=== PATIENT | female | born 1965 | race Caucasian/White ===

== ENCOUNTER 2019-01-12 07:06 | Inpatient (IN) ==
[2019-01-12] MEDS ORDERED: NS 1,000 ML ONE ×2 (07:28→10:12)
[2019-01-12] MEDS ORDERED: NS 1,000 ML IV ONE ×3 (07:30→08:09)
--- NOTE | 2019-01-12 07:41 | PROVIDER DOCUMENTATION ---
[id number] Abuse/Overdose - General Chief Complaint: Shortness of Breath Stated Complaint: CONFUSED Time Seen by Provider: 01/12/19 07:35 Source: patient Allergies/Adverse Reactions: Allergies Allergy/AdvReac Type Severity Reaction Status Date / Time No Known Allergies Allergy Verified 04/08/17 12:32 Home Medications: Home Medication List Medication Instructions Recorded Confirmed Last Taken Type Cholecalciferol (Vitamin D3) 50,000 units PO ORDERED 04/08/17 01/12/19 01/11/19 History [D3-50] Folic Acid 1 mg PO DAILY 04/08/17 01/12/19 01/11/19 History Polyethylene Glycol 3350 [Miralax] 17 gm PO DAILY 04/08/17 01/12/19 01/11/19 History Atenolol 50 mg PO BID 01/13/19 01/13/19 01/11/19 History Doxepin HCl 50 mg PO DAILY 01/13/19 01/13/19 01/11/19 History Ergocalciferol (Vitamin D2) 50,000 units PO DIRECTED 01/13/19 01/13/19 Unknown History [Vitamin D] Folic Acid 1 mg PO DAILY 01/13/19 01/13/19 Unknown History Furosemide 20 mg PO DAILY 01/13/19 01/13/19 Unknown History Furosemide 20 mg PO DAILY 01/13/19 01/13/19 01/11/19 History Potassium Chloride [Klor-Con 10] 10 meq PO DAILY 01/13/19 01/13/19 01/09/19 History Quetiapine Fumarate 50 mg PO QHS 01/13/19 01/13/19 01/09/19 History Tramadol HCl 50 mg PO Q4HR PRN 01/13/19 01/13/19 01/11/19 History - History of Present Illness-Drug/Alcohol Nature of Presenting Problem: 3 days not eating and vomiting alcohol abuse smoker psychiatric illness asymmetric face says has had a stroke This episode of drinking or use began:: 3 days ago Severity: reports: severe Situational problems related to:: reports: N/A Associated Symptoms: reports: dizziness, fatigue, loss of appetite, nausea, vomi ting, weakness Any injuries associated with this episode of intoxication?: No Similar Symptoms Previously?: No Recently seen or treated by another doctor?: No Review of Systems - Adult - REVIEW OF SYSTEMS - ADULT Constitutional: denies: chills, fever Eyes: reports: no symptoms reported Ears, Nose, Mouth & Throat: reports: no symptoms reported Cardiovascular: denies: chest pain, palpitations Respiratory: reports: no symptoms reported Gastrointestinal: reports: diarrhea, nausea, vomiting Genitourinary: reports: no symptoms reported Musculoskeletal: reports: muscle weakness Integumentary: reports: no symptoms reported Neurological: reports: no symptoms reported Psychiatric: reports: anti-depressant use, alcohol/drug dependence, depression, emotional problems Endocrine: reports: no symptoms reported Hematologic/Lymphatic: reports: no symptoms reported Allergic/Immunologic: reports: no symptoms reported All Other Systems: Reviewed and Negative Past History - Adult - PAST MEDICAL HISTORY-ADULT Review of Records: reports: Old Records Reviewed, Nursing Assessment Review, Medications Reviewed, Social history reviewed & non-contributory. Major Childhood Illnesses: reports: denies history Cardiovascular: reports: HTN Respiratory: reports: denies history Gastrointestinal: reports: liver disease Obstetrical/Gynecological: reports: denies history Genitourinary: reports: denies history Musculoskeletal: reports: denies history Neurological: reports: CVA Endocrine/Immune: reports: denies history Other Conditions: reports: denies history - PRIOR SURGERIES/PROCEDURES Surgical/Procedure History: reports: BTL, orthopedic (extremity) (L knee) - IMMUNIZATION STATUS Childhood Immunizations: See Nurse Assessment Flu Vaccine: See Nurse Assessment - FAMILY HISTORY Family History: reviewed, not pertinent - SOCIAL HISTORY Substance Use: alcohol Living Situation: alone Physical Exam-General - PHYSICAL EXAM-ADULT Initial Vital Signs Reviewed: Yes - CONSTITUTIONAL General Appearance: moderate distress - EYES Eyes: PERRL/EOMI. negative: scleral icterus - HEAD, EARS, NOSE, MOUTH & THROAT HENMT: normocephalic/atraumatic - NECK Neck: supple - RESPIRATORY Respiratory: lungs clear - CARDIOVASCULAR Cardiovascular: regular rate, rhythm - GASTROINTESTINAL (ABDOMEN) Abdominal Exam: normal bowel sounds, non tender - LYMPHATIC Lymphatic: no adenopathy - MUSCULOSKELETAL Back Exam: normal inspection, no CVA tenderness, no vertebral tenderness Extremity: normal range of motion Peripheral Pulses: radial (R): 1+, radial (L): 1+ - SKIN Integumentary: normal color, normal turgor - NEUROLOGIC Neurologic: grossly normal - PSYCHIATRIC Psych/Mental Status: depressed affect Progress - PLAN OF CARE/RESULTS Progress/Plan/Lab Results: Orders Category Date Time Status Admit [facility] Routine AdmDCTranf 01/12/19 10:11 Active Activity - Strict Bedrest ORDERED Care 01/12/19 10:11 Active Apply Mechanical Device [QM] Q12-HR ASSESS Care 01/12/19 10:11 Active Cardiac Monitoring DIRECTED Care 01/12/19 07:17 Completed Elevate Head of Bed DIRECTED Care 01/12/19 10:11 Active Encourage Fluids DIRECTED Care 01/12/19 10:11 Active Morejon Cath Insertion ORDERED Care 01/12/19 08:09 Completed IV Insertion ORDERED Care 01/12/19 07:17 Completed IV Insertion ORDERED Care 01/12/19 08:09 Completed Intake and Output-Strict ORDERED Care 01/12/19 08:09 Completed Intake and Output-Strict Q 8-HR ASSESS Care 01/12/19 10:11 Active Notify MD of + Sepsis Screen NOW Care 01/12/19 07:17 Completed Notify Physician As Ordered Care 01/12/19 07:17 Completed Nursing- Assist w/ IS as order ORDERED Care 01/12/19 10:11 Active Repeat Vital Signs .Oxygen Saturation Care 01/12/19 08:09 Completed Repeat Vital Signs .Respiratory Rate Care 01/12/19 08:09 Completed Repeat Vital Signs .Temp Care 01/12/19 08:09 Completed Turn, Cough and Deep Breathe Q2HR Care 01/12/19 10:11 Active Update & Confirm Home Medicati ROUTINE Care 01/12/19 10:11 Completed Vital Signs Order Q 4-HR ASSESS Care 01/12/19 10:11 Completed Z-Document. for Tele Applied ORDERED Care 01/12/19 10:11 Completed Heart Healthy Diet Diet 01/12/19 10:11 Completed CHEST-1 VIEW [RAD] Stat Exams 01/12/19 07:17 Completed ABG [RESP] Routine Lab 01/12/19 08:25 Completed AMMONIA [CHEM] Stat Lab 01/12/19 07:30 Completed BASIC METABOLIC PANEL [CHEM] Routine Lab 01/13/19 07:21 Completed BLOOD CULTURE [BLDCUL] Stat Lab 01/12/19 07:37 Completed CBC WITH DIFF [HEME] Routine Lab 01/13/19 07:21 Completed CBC WITH DIFF [HEME] Stat Lab 01/12/19 07:30 Completed CK PROFILE [SP CHEM] Stat Lab 01/12/19 07:30 Completed COMPREHENSIVE METABOLIC PANEL [CHEM] Stat Lab 01/12/19 07:30 Completed LACTATE, PLASMA [CHEM] Lab 01/12/19 11:57 Completed LACTATE, PLASMA [CHEM] Q3H Lab 01/12/19 07:30 Completed MAGNESIUM [CHEM] Stat Lab 01/12/19 07:30 Completed PROTIME WITH INR [COAG] Stat Lab 01/12/19 07:30 Completed PTT [COAG] Stat Lab 01/12/19 07:30 Completed TROPONIN T Stat Lab 01/12/19 07:[address] W/POSS RFLX CULT [URINALYSIS] Stat Lab 01/12/19 10:18 Completed 0.9% Sodium Chloride Inj [Ns] 1,000 ml Med 01/12/19 07:28 Discontinued .ROUTE As directed 0.9% Sodium Chloride Inj [Ns] 1,000 ml Med 01/12/19 10:11 Discontinued IV 75 mls/hr 0.9% Sodium Chloride Inj [Ns] 1,000 ml Med 01/12/19 07:41 Discontinued IV 999 mls/hr 0.9% Sodium Chloride Inj [Ns] 1,000 ml Med 01/12/19 08:09 Discontinued IV As Directed mls/hr 0.9% Sodium Chloride Inj [Ns] 1,000 ml Med 01/12/19 07:30 Discontinued IV Wide Open mls/hr Acetaminophen [Tylenol] Med 01/12/19 10:11 Discontinued 650 mg PO Q4H PRN PRN Albuterol 2.5MG/Ipratrop 0.5MG [Duoneb (A & A)] Med 01/12/19 11:30 Discontinued 3 ml INH RTQ4H Dextrose 5%-0.45% NaCl Inj [D5 /2 Ns] 250 ml Med 01/12/19 08:15 Discontinued Norepinephrine [Levophed] 8 mg IV As Directed mls/hr Pharmacy Order [Vancomycin IV Per Pharmacy] Med 01/12/19 10:11 Discontinued 1 each MISC DIRECTED Piperacillin/Tazobactam [Zosyn] 3.375 gm Med 01/12/19 08:13 Discontinued 0.9% Sodium Chloride Inj [Ns] 50 ml IV NOW Piperacillin/Tazobactam [Zosyn] 3.375 gm Med 01/12/19 10:11 Discontinued 0.9% Sodium Chloride Inj [Ns] 50 ml IV Q6H Aerosol Treatments Routine Oth 01/12/19 10:11 Completed Aerosol Treatments Stat Ot 01/12/19 10:11 Completed Incentive Spirometer Routine Ot 01/12/19 10:11 Completed Oxygen Device Stat Ot 01/12/19 07:17 Completed Telemetry [OM.EQ] Routine Ot 01/12/19 10:11 Active Transfer/Admit Order [TRANSFER] Routine Transfer 01/12/19 08:41 Completed Result Diagrams: 01/19/19 05:10 01/19/19 05:10 - EKG 1 Time of EKG reading by physician:: 07:23 EKG Read and Signed by:: Josh Silva EKG Interpretation (*Must complete 3 of following elements*): Abnormal Rate: 105 Rhythm: sinus tachycardia [place]: right Comments: ST & T wave abnormality, consider anterior ischemia Departure - Departure Date of Disposition Decision: 01/12/19 Time of Disposition Decision: 19:10 DIAGNOSIS: Gastroenteritis, Polydrug abuse Disposition: ADMITTED INPATIENT 09 Certified Medical Emergency: Emergent Condition: Stable - Critical Care Note This patient required my direct & personal management of CC.: No Attestation - Physician/ BASHIR Attestation Patient care was provided by Advanced Practice Provider:: No The physician spent face to face time with patient:: Yes Advanced Practice Provider documentation review:: Supervising physician onsite and consulted in the evaluation and care of this patient. The physician did have a face to face encounter with the patient.
[2019-01-12 08:03] LABS: BASO# 0.01 X1000 (0.0-0.2); BASO% 0.2 % (0.0-0.8); EOS# 0.01 X1000 (0.0-0.7); EOS% 0.2 % (0.0-10.0); HEMATOCRIT 33.6 % (37.0-47.0); HEMOGLOBIN 11.5 g/dL (12.0-16.0); IMM GRAN# 0.05 X1000 (0.0-0.04); IMM GRAN% 1.2 % (0.0-0.5); LYMPH# 0.59 X1000 (1.2-3.4); MCH 36.3 PG (27-31); MCHC 34.2 g/dL (33-37); MONO# 0.45 X1000 (0.11-0.59); MONO% 10.7 % (1.7-9.3); MPV 12.8 FL (7.4-10.4); NEUT% 73.7 % (42.2-75.2); PLT 88 X1000 (130-400); RBC 3.17 XMIL (4.2-5.4); RDW 14.9 % (11.5-14.5); WBC 4.21 X1000 (4.8-10.8)
[2019-01-12 08:04] LABS: INR 1.31; PROTIME 16.9 Seconds (11.0-16.0)
[2019-01-12 08:05] LABS: PTT 38.6 Seconds (22.3-41.8)
[2019-01-12] MEDS ORDERED: ZOSYN 3.375 GM in NS 50 ML IV ONE (08:13)
[2019-01-12] MEDS ORDERED: LEVOPHED 8 MG in D5 1/2 NS 250 ML IV SCH ×2 (08:15→16:00)
--- NOTE | 2019-01-12 08:20 | Diag Imaging Result Doc PS360 ---
EXAM: CHEST-1 VIEW HISTORY: sob TECHNIQUE: Portable chest single view COMPARISON: 05/14/2017 FINDINGS: The lungs are well expanded. The heart is not enlarged. The vessels are not distended. There is increased density in the right lower lobe. No effusion identified. There are several old right rib fractures. IMPRESSION: Right lower lobe pneumonia. Electronically signed by aGbino Adams 01/12/2019 8:18 AM
[2019-01-12 08:37] LABS: BE -5.5 mmoll (-3.0-3.0); BLOOD TYPE ARTERIAL; HCO3-(ACT) 20.5 mmoll (20.0-26.0); O2(CT) 13.4 mL/dL (15.0-23.0); PCO2(98.6) 38 mmHg (35-45); PO2(98.6) 66 mmHg (60-100); SAMPLE BLOOD; SAO2 93.6 % (95.0-100.0); THB 10.6 g/dL (11.5-17.4); pH(98.6) 7.33 (7.35-7.45)
[2019-01-12 08:43] LABS: ALLEN TEST YES; MODALITY CANNULA; O2HB 89.8 % (95.0-99.0)
[2019-01-12 08:54] LABS: ANISOCYTOSIS 1+; BANDS 1 % (0-1); LYMPHS 17 % (21-51); MONO 15 % (1-9); SEGS 67 % (42-75)
[2019-01-12 09:23] LABS: ALBUMIN 2.7 g/dL (3.5-5.0); TOTAL BILIRUBIN 1.6 mg/dL (0.20-1.00); TOTAL PROTEIN 6.3 g/dL (6.3-8.3)
[2019-01-12 09:25] LABS: CALCIUM 6.9 mg/dL (8.8-10.2)
[2019-01-12 09:42] LABS: CK INDEX 1.8 (0.0-2.5); CK-MB 5.35 ng/mL (0.0-5.0)
--- NOTE | 2019-01-12 09:56 | HISTORY AND PHYSICAL ---
PRIMARY CARE PHYSICIAN: Dr. Barajas CHIEF COMPLAINT: Shortness of breath, some increased confusion, decreased appetite and vomiting over the past 3 days that has progressively worsened. HISTORY OF PRESENTING ILLNESS: This is a 53-year-old female who presents to [facility] ER with complaints of shortness of breath, confusion, decreased appetite, and has not been eating for the last 3 days and vomited with generalized weakness. When she arrived to the emergency room, she had an O2 saturation on room air of 87%. Blood pressure was 88/57; about 15 minutes later, she was 70/41. She has been given a total of 3 L of normal saline. Blood pressure is still 80s over 50s, and so she is being started on a Levophed drip per protocol. Her white blood cell count was 4.21. Her plasma lactate was 7.6. Her chest x-ray showed a right lower lobe pneumonia, so she is being admitted to the intensive care unit for further evaluation and treatment. PAST MEDICAL HISTORY: Atrial fibrillation, hyperlipidemia, hypertension, and CVA. PAST SURGICAL HISTORY: Bilateral tubal ligation. FAMILY HISTORY: Noncontributory. SOCIAL HISTORY: She currently lives with family, is a 9-qguw-u-day smoker. She has had a history of ETOH abuse, but none currently, and denies any illicit drug use. ALLERGIES: She has no known drug allergies. HOME MEDICATIONS: A current list will need to be confirmed, updated, and then we will review to restart. I have placed an order for nursing to update and confirm home medications. LABORATORY DATA: Showed a white blood cell count of 4.21, hemoglobin 11.5, hematocrit 33.6, platelets 88,000. PT and INR of 16.9 and 1.31. An ABG showed a pH of 7.33, pCO2 of 38, PO2 of 66, bicarbonate 20.5, and this was on 4 L via nasal cannula. Her CMP is currently pending. Her troponin is less than 0.01. Ammonia is 37. Plasma lactate was 7.6. Chest x-ray showed a right lower lobe pneumonia. REVIEW OF SYSTEMS: She denied any fever, chills. She has had some blurred vision, dizziness, and denied any chest pain. She has had a nonproductive cough, shortness of breath that is worse with exertion. Denied any abdominal pain. She has had some nausea, vomiting. Denied any constipation, diarrhea, or burning or hurting with urination. PHYSICAL EXAMINATION: VITAL SIGNS: On arrival, she had a temperature of 98.3 degrees, pulse 112, respirations 24, blood pressure was 88/57. It did drop about 30 minutes later to 70/41. We have given 3 L of normal saline bolus, and it only came up to 80s over 50s, so she is being started on a Levophed drip per protocol. GENERAL: This is a 53-year-old female who is sitting up in the bed, alert and awake and answers questions appropriately. HEENT: Normocephalic, atraumatic. Normal ENT inspection. Oropharynx and nares are clear. Eyes: Pupils are equal, round, reactive to light and accommodation. Extraocular movements are intact. NECK: Normal inspection, normal range of motion. LUNGS: With rales, rhonchi and wheezing throughout posterior lung doss. Equal lung expansion and chest wall movement noted. HEART: With regular rate and rhythm. No murmurs, rubs, or gallops. ABDOMEN: Soft, nontender, nondistended. Bowel sounds are present x4 quadrants. EXTREMITIES: She has some weakness to her right upper arm residual from her CVA, but otherwise she has 5/5 strength to her left upper arm and bilateral lower extremities. NEUROLOGICAL: The cranial nerves 2 through 12 appear grossly intact except for her right upper arm weakness from her CVA. ASSESSMENT: 1. Septic shock. 2. Right lower lobe pneumonia. 3. Hypotension. 4. Acute respiratory failure. PLAN: She is being admitted to the Intensive Care Unit at [facility], placed on telemetry, O2 per protocol, incentive spirometry, Zosyn 3.375 grams IV every 6 hours, vancomycin per pharmacy protocol. She will be on Levophed per protocol, normal saline at 75 mL/hour for her maintenance fluids. We will do serial plasma lactate per the sepsis protocol. Blood cultures x2 are pending. Again, nursing will update and confirm home medications and then we will review and restart after they have been reconciled. Further orders after being seen by attending. Dictated by JEFFREY Dyer for Mandy Haddad MD cc: JEFFREY Dyer MD Dr. Lovelace
[2019-01-12] MEDS ORDERED: TYLENOL PO PRN ×2 (10:11→15:21)
[2019-01-12] MEDS ORDERED: ZOSYN 3.375 GM in NS 50 ML IV SCH ×2 (10:11→16:00)
[2019-01-12] MEDS ORDERED: NS 1,000 ML IV SCH (10:11)
[2019-01-12] MEDS ORDERED: VANCOMYCIN IV PER PHARMACY MISC SCH (10:11)
[2019-01-12] MEDS ORDERED: MAGNESIUM SULFATE 4 GM/S.W.I. 4 GM/100 ML IVPB IV ONE (10:23)
[2019-01-12] MEDS ORDERED: DUONEB (A & A) ONE (10:26)
[2019-01-12] MEDS ORDERED: ZYVOX 600 MG/D5W 600 MG/300 ML IVPB IV SCH ×2 (10:30→22:00)
--- NOTE | 2019-01-12 10:32 | EKG Report ---
Test Performed on : 01/12/2019 07:23:02 AM Test Reason : ER Blood Pressure : / mmHG Vent. Rate : 105 BPM Atrial Rate : 105 BPM P-R Int : 164 ms QRS Dur : 092 ms QT Int : 366 ms P-R-T Axes : 018 092 069 degrees QTc Int : 483 ms Sinus tachycardia. Rightward axis ST & T wave abnormality, consider anterior ischemia Abnormal ECG When compared with ECG of 12-JAN-2019 07:22, (Unconfirmed) Previous ECG has undetermined rhythm, needs review Unconfirmed Result
[2019-01-12 11:00] LABS: BILIRUBIN URINE 2+ (NEGATIVE); BLOOD URINE 1+ (NEGATIVE); KETONE URINE 1+(Small) mg/dL (NEGATIVE); LEUKOCYTES URINE 1+ (NEGATIVE); NITRITE URINE POSITIVE (NEGATIVE); PH URINE 6.5; SP GRAVITY URINE 1.025; UROBILINOGEN URINE 8 mg/dL
[2019-01-12 11:01] LABS: CLARITY VERY CLOUDY (CLEAR); COLOR AMBER
[2019-01-12 11:10] LABS: URINE BACTERIA 2+ /HFP; URINE EPITHELIAL CELLS <10 /HPF (<10); URINE RBC <10 /HPF (<10); URINE SOURCE CLEAN CATCH
[2019-01-12] MEDS ORDERED: DUONEB (A & A) INH SCH (11:30)
--- NOTE | 2019-01-12 11:47 | HISTORY AND PHYSICAL ---
ADDENDUM: This is a 53-year-old female who was seen by me [id number] while she was there at the emergency room in room 11. I fully agree with the assessment and plan of nurse practitioner Naye Bello. The patient has been in septic shock because of which she had to receive Levophed, and is being aggressively hydrated. She has acute kidney injury, possibly secondary to sepsis with BUN and creatinine of 79 and 8.0 respectively. Her magnesium levels are found to be extremely low at 1.0 and calcium levels are low at 6.9. She has bilateral rales. Chest x-ray is consistent with right lower lobe pneumonia. Furthermore, she has 10 to 20 WBCs per high-power field in her urine. The patient has been initiated on Zosyn and Zyvox intravenously. She will need care in an intensive care setting. Because of her renal shutdown, we are going to transfer her to [facility] intensive care unit. We are going to consult Dr. Dozier from Nephrology Service and Dr. Chairez from Infectious Disease Service. Further recommendations will be given as per hospital course. cc: Mandy Haddad MD
[2019-01-12] MEDS: DUONEB (A & A) INH SCH ×3 (15:51→22:50)
[2019-01-12 16:04] LABS: UR CREAT RANDOM 239.5 mg/dL (11-20)
--- NOTE | 2019-01-12 16:12 | Diag Imaging Result Doc PS360 ---
EXAM: US RENAL 2 (RETROPER) COMPLETE 01/12/2019 HISTORY: acute kidney failure TECHNIQUE: Renal ultrasound COMMENT: The kidneys are without evidence of hydronephrosis. The urinary bladder is not distended. The right kidney is 12.2 x 6 x 6 x 8 cm the left is 13.4 x 6.1 x 6.6 cm. There is no evidence of solid masses. Overall the appearance of both kidneys is similar to that on 01/26/2016. IMPRESSION: No evidence of obstructive uropathy. Electronically signed by Mele Dykes 01/12/2019 4:09 PM
--- NOTE | 2019-01-12 16:29 | INFECTIOUS DISEASE CONSULT REP ---
DATE: 01/12/2019 CONCLUSION: The patient appears to be septic due to pneumonia and possibly urinary tract infection as well. The patient has developed acute renal failure also. RECOMMENDATIONS: I have discontinued Zyvox and Zosyn. I am going to treat the patient with ceftaroline and Levaquin. DISCUSSION: The patient was wearing an oxygen mask and it was difficult for me to obtain a history from her. According to the data in the chart, the patient had shortness of breath, increased confusion, decreased appetite and vomiting over the past 3 days. Her studies thus far show a chest x-ray with a right lower lobe pneumonia, urinalysis with white cells and bacteria. Blood and urine cultures are pending. AST was 45. Bilirubin was 1.6. Creatinine was 8. GFR was 5. Blood gases had a pH of 7.33, a pO2 of 66, and a pCO2 of 38. The patient's CBC showed a white count of 4210, hemoglobin 11.5, and platelet count of 88,000. PAST MEDICAL HISTORY: Positive for atrial fibrillation, hyperlipidemia, hypertension, and stroke. PAST SURGICAL HISTORY: Positive for bilateral tubal ligation. FAMILY HISTORY: Said to be noncontributory. SOCIAL HISTORY: The patient lives with her family. She is a 1 pack-a-day smoker. She has a history of alcohol abuse but none currently. She does not have any history of illicit drug use. HOME MEDICATIONS: Include vitamin D3, folic acid and MiraLAX. PHYSICAL EXAMINATION: Vital Signs: Temperature is 97.2 degrees, pulse 88, respirations 19, blood pressure 92/80. Patient is 5 feet 7 inches tall, weighs 180 pounds. General: This is an ill- appearing middle-aged female. She is in no acute distress. Head/eyes/ears/nose/throat: She can hear my spoken words and see near objects. She does not have any white coating on her tongue. There is no drainage from the nose or ears. Neck: No meningismus. Lungs: Clear to auscultation. Cardiovascular: Heart rate is regular. Abdomen: Soft and nontender. Neurologic: The patient is awake. She can move her extremities. There is no tremor. Integument: No rash noted. Thank you for the consult. cc: Mayur Chairez MD
[2019-01-12] MEDS: LEVAQUIN 250 MG/D5W 250 MG/50 ML IVPB IV SCH (17:02)
[2019-01-12] MEDS: LEVOPHED 8 MG in D5 1/2 NS 250 ML IV SCH ×2 (17:02→22:08)
[2019-01-12] MEDS: NICODERM PATCH TD SCH (17:02)
--- NOTE | 2019-01-12 18:05 | Diag Imaging Result Doc PS360 ---
EXAM: US GB < RUQ (LIMITED) 01/12/2019 HISTORY: GB disease TECHNIQUE: Right upper quadrant ultrasound COMMENT: The liver is hyperechoic. The visualized portions of the aorta and inferior vena cava are within normal limits. The visualized portions of the pancreas are unremarkable. The gallbladder is clear and nontender. The right kidneys without evidence of hydronephrosis or mass. There is antegrade flow in the portal vein. There is no evidence of biliary dilatation the common bile duct measuring 5 mm. IMPRESSION: Hepatic steatosis. No evidence of acute disease. Electronically signed by Mele Dykes 01/12/2019 6:03 PM
[2019-01-12] MEDS: TEFLARO 400 MG in NS 250 ML IV SCH (18:15)
[2019-01-12 18:30] LABS: ALBUMIN 1.8 g/dL (3.5-5.0); CREATININE 6.1 mg/dL (0.5-0.9); PHOSPHORUS 3.8 mg/dL (2.7-4.5); POTASSIUM 4.1 mmol/L (3.5-5.1)
[2019-01-12] MEDS ORDERED: CALCIUM CHLORIDE SYRINGE IV ONE (18:47)
[2019-01-12] MEDS ORDERED: NS IV ONE (19:30)
[2019-01-12] MEDS ORDERED: CALCIUM CHLORIDE IV ONE (19:30)
[2019-01-12] MEDS: VITAMIN B-1 PO SCH (20:00)
[2019-01-12] MEDS: FOLIC ACID PO SCH (20:00)
[2019-01-12] MEDS: NS 1,000 ML IV SCH (21:08)
[2019-01-12] MEDS: ATIVAN IV PRN (23:00)
[2019-01-13] MEDS: DUONEB (A & A) INH SCH ×6 (02:50→23:13)
[2019-01-13] MEDS: LEVOPHED 8 MG in D5 1/2 NS 250 ML IV SCH ×2 (05:26→14:26)
[2019-01-13] MEDS: TEFLARO 400 MG in NS 250 ML IV SCH ×2 (05:26→18:09)
[2019-01-13 07:57] LABS: CALCIUM 7.8 mg/dL (8.8-10.2); CREATININE 5.1 mg/dL (0.5-0.9); POTASSIUM 4.1 mmol/L (3.5-5.1)
[2019-01-13 08:06] LABS: BASO# 0.01 X1000 (0.0-0.2); BASO% 0.1 % (0.0-0.8); EOS# 0.05 X1000 (0.0-0.7); EOS% 0.6 % (0.0-10.0); HEMATOCRIT 31.9 % (37.0-47.0); HEMOGLOBIN 10.7 g/dL (12.0-16.0); IMM GRAN# 0.13 X1000 (0.0-0.04); IMM GRAN% 1.7 % (0.0-0.5); LYMPH# 1.01 X1000 (1.2-3.4); LYMPH% 12.9 % (20.5-51.1); MCH 36.3 PG (27-31); MCHC 33.5 g/dL (33-37); MCV 108.1 FL (81-99); MONO% 6.4 % (1.7-9.3); NEUT# 6.14 X1000 (1.4-6.5); NEUT% 78.3 % (42.2-75.2); PLT 68 X1000 (130-400); RBC 2.95 XMIL (4.2-5.4); RDW 14.8 % (11.5-14.5); WBC 7.84 X1000 (4.8-10.8)
[2019-01-13] MEDS: VITAMIN B-1 PO SCH (08:08)
[2019-01-13] MEDS: LIBRIUM PO SCH ×3 (08:08→16:15)
[2019-01-13] MEDS: FOLIC ACID PO SCH (08:08)
[2019-01-13] MEDS: NICODERM PATCH TD SCH (08:09)
[2019-01-13 08:20] LABS: BANDS 10 % (0-1); EOS 1 % (1-10); LYMPHS 16 % (21-51); MONO 5 % (1-9); SEGS 68 % (42-75)
[2019-01-13] MEDS: NS 1,000 ML IV SCH (10:55)
--- NOTE | 2019-01-13 13:40 | NEPHROLOGY CONSULTATION ---
DATE: 01/13/2019 REASON FOR ADMISSION: Shortness of breath, confusion, decreased appetite, nausea, vomiting for over 3 days. REASON FOR CONSULTATION: Acute kidney injury, assist with management. CONSULTING PHYSICIAN: Dr. Tolbert. HISTORY OF PRESENT ILLNESS: This is a 53-year-old female who presented to [facility] ER with shortness of breath, confusion, no appetite for 3 days, nausea, and vomiting. In the emergency room she had an O2 saturation of 87. She was hypotensive with a blood pressure systolic 70s to 80s. She was resuscitated with 3 L of normal saline and started on pressor support. She had a lactate of 7.6. Chest x-ray indicated a right lower lobe pneumonia. Initially, she had a creatinine of 8. She was transferred over to the [facility] Intensive Care Unit for further evaluation and treatment. Overnight her creatinine has improved from 8 down to 5.1. Urine output has begun picking up in the last 12 hours. She has had 650 mL out since she arrived to [facility] last night. It was noted that she had a FENa of 0.4. When I see her this morning, she is able to eat. She is still confused but has not had any nausea or vomiting at this time. PAST MEDICAL HISTORY: Atrial fibrillation, hypertension, hyperlipidemia, history of cerebrovascular accident. SURGICAL HISTORY: Bilateral tubal ligation. ALLERGIES: No known drug allergies. HOME MEDICATIONS: Listed as vitamin D3, folic acid, doxepin, atenolol, ergocalciferol, furosemide, folic acid, tramadol, quetiapine, and potassium chloride. FAMILY HISTORY: Noncontributory. SOCIAL HISTORY: Lives at home with her family. Continues to smoke a pack a day. No ETOH or illicit drug use noted. REVIEW OF SYSTEMS: Confusion, nausea, vomiting, weakness, shortness of breath. Otherwise negative. PHYSICAL EXAMINATION: Vital Signs: Temperature 98 degrees, pulse 90, respiratory rate 16, blood pressure 117/78, intake 2.2 L. This was after she arrived at [facility] ICU. Output of 650 mL in same time frame. General: Middle-aged female sitting up in bed. She is awake and alert. She is a little bit confused but does slowly answer questions. HEENT: Normocephalic, atraumatic. Oral mucosa is moist. Neck: Supple. CRISSY. Conjunctivae are pale. Neck: No JVD. Cardiovascular: Regular rate and rhythm. Pulmonary: She has wheezes bilaterally with rhonchi and rales. She is on O2 supplementation via nasal cannula. She has decreased breath sounds to the posterior doss. Abdomen: Soft, with positive bowel sounds. : Morejon catheter. Extremities: Trace edema. Some decreased movement to the right upper extremity. Neurologic: Grossly nonfocal. LAB DATA: Sodium 140, potassium 4.1, CO2 24, BUN 89, creatinine 5.1 (8.0). She had a FENa of 0.4. Urine was cloudy with 3+ protein, 1+, ketones, 1+ blood, positive nitrates, and 1+ WBCs. Her WBC was 7.8, hemoglobin was 10.7 today. She had a ultrasound with kidneys unremarkable and no evidence of hydronephrosis or obstruction. Her chest x-ray yesterday with right lower lobe pneumonia. ASSESSMENT/PLAN: 1. Acute kidney injury secondary to decreased intravascular volume along with increased metabolic production secondary to pneumonia. She has had impressive improvement with renal function in the last 12 hours with IV fluid resuscitation. 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 We will continue her current treatment plan. She does not have any indications for intervention in the form of dialysis at this time. 2. Electrolytes, acid-base balance. These are acceptable. Her CO2 is up to 24 today. Calcium is still low but improving. She has labs ordered for in the morning. 3. Proteinuria and hematuria in the setting of urinary tract infection. She is on appropriately dosed antibiotics. I will recheck her urine. If she continues with a proteinuria, will need a protein work. Dictated by JEFFREY Baer for Mike Dozier MD cc: Mike Dozier MD [facility]
--- NOTE | 2019-01-13 15:08 | PROGRESS NOTE ---
DATE: 01/13/2019 SUBJECTIVE: The patient's notes she looks better today. Her color is better. She is breathing easier. Several days prior to coming in, she had increased confusion due to her decreased appetite up to 3 to 4 days prior to admission. She notes that she had stopped eating and drinking as well. OBJECTIVE: Vital Signs: On exam, temperature 98.4, pulse 90, respiratory rate 18, BP 111/77. General: Patient is awake. She is in no current respiratory distress. HEENT: Normocephalic. Neck: Supple. CV: Regular rate. Chest: Clear, but decreased breath sounds bilaterally. No crackles. Abdomen: Soft. Positive bowel sounds. Extremities: Moves all extremities, although generalized weakness. ASSESSMENT: 1. Chronic tobacco abuse. 2. Severe hyponatremia, improved. 3. Septic shock, improved. 4. Acute renal failure. Creatinine was 8.0 yesterday; currently is improved down to 5.1. 5. Hypocalcemia, improved. 6. Right lower lobe pneumonia. 7. Urinary tract infection. PLAN: We will continue patient on Levaquin at the floor until cultures return. We will continue IV fluids, continue her in the ICU for now. Further orders as needed. cc: Giovani Tolbert MD
[2019-01-13] MEDS: LEVAQUIN 250 MG/D5W 250 MG/50 ML IVPB IV SCH (15:26)
[2019-01-13] MEDS: ATIVAN IV PRN (22:35)
[2019-01-14] MEDS: LEVOPHED 8 MG in D5 1/2 NS 250 ML IV SCH (00:33)
[2019-01-14] MEDS: NS 1,000 ML IV SCH ×2 (00:34→13:58)
[2019-01-14] MEDS: DUONEB (A & A) INH SCH ×6 (02:58→23:14)
[2019-01-14] MEDS: TEFLARO 400 MG in NS 250 ML IV SCH ×3 (04:55→17:45)
[2019-01-14 06:32] LABS: HEMOGLOBIN 10.2 g/dL (12.0-16.0); MCH 36.8 PG (27-31); MCV 108.3 FL (81-99); MPV 12.4 FL (7.4-10.4); RBC 2.77 XMIL (4.2-5.4); RDW 15.2 % (11.5-14.5); WBC 4.98 X1000 (4.8-10.8)
[2019-01-14 07:54] LABS: ALBUMIN 1.7 g/dL (3.5-5.0); CALCIUM 7.8 mg/dL (8.8-10.2); CREATININE 3.5 mg/dL (0.5-0.9); PHOSPHORUS 3.2 mg/dL (2.7-4.5); POTASSIUM 3.1 mmol/L (3.5-5.1)
[2019-01-14] MEDS: NICODERM PATCH TD SCH (08:59)
[2019-01-14] MEDS: LIBRIUM PO SCH ×3 (09:00→16:56)
[2019-01-14] MEDS: VITAMIN B-1 PO SCH (09:00)
[2019-01-14] MEDS: FOLIC ACID PO SCH (09:00)
--- NOTE | 2019-01-14 09:49 | NEPHROLOGY PROGRESS NOTE ---
DATE: 01/14/2019 SUBJECTIVE: The patient is sitting up in bed. No acute distress. OBJECTIVE: Vital Signs: Temperature 98.4 degrees, pulse 86, respiratory rate 18, blood pressure 111/74. Intake 3.7 L. Output 1.9 L. General: This is a middle-aged female, sitting up in bed. Awake and alert. Mild confusion but is appropriate with answers. HEENT: Normocephalic and atraumatic. CRISSY. Neck: Supple without JVD. Respiratory: She has no wheeze or rales today. Remains on O2 supplementation via nasal cannula. Does have decreased breath sounds posterior. Abdomen: Soft with positive bowel sounds. : Continues with a Morejon catheter and yellow urine. She has greater than 300 mL out so far this morning. Her urine output has picked up nicely. Extremities: Trace edema. No clubbing or cyanosis. Integumentary: Skin is warm and dry. Lab Data: WBC of 4.9, hemoglobin 10.2. Sodium 145, potassium 3.1, CO2 21, creatinine 3.5, albumin 1.7. ASSESSMENT AND PLAN: 1. Acute kidney injury secondary to decreased intravascular volume in the setting of pneumonia. Continues with nice improvement in renal function. Her urine output has picked up tremendously over the last 24 hours. No indications for intervention other than her current treatment plan. Continue to monitor. 2. Electrolytes, acid-base balance, anemia. These are all stable. CO2 remains stable at 21. Continue to monitor. 3. Proteinuria. I have a urinalysis and a urine creatinine-protein ratio ordered. I do not have those results yet. If that is significant, we will need to follow up. 4. Hypoalbuminemia. Encourage nutrition. I am waiting on results from her urine studies before I determine if she needs to actually have intravenous albumin. Dictated by JEFFREY Baer for Mike Dozier MD cc: Mike Dozier MD
[2019-01-14 10:25] LABS: URINE SOURCE CATH
[2019-01-14 10:29] LABS: BILIRUBIN URINE NEGATIVE (NEGATIVE); BLOOD URINE SMALL (NEGATIVE); COLOR YELLOW; GLUCOSE URINE NEGATIVE (NEGATIVE); KETONE URINE NEGATIVE (NEGATIVE); LEUKOCYTES URINE TRACE (NEGATIVE); NITRITE URINE NEGATIVE (NEGATIVE); PROTEIN URINE TRACE mg/dL (NEGATIVE); SP GRAVITY URINE 1.005; TURBIDITY URINE HAZY (CLEAR); UROBILINOGEN URINE 2 mg/dL (NORMAL)
[2019-01-14 10:51] LABS: PROTEIN CREAT RATIO 0.3; UR CREAT RANDOM 53.2 mg/dL (11-20); UR PROT RANDOM 17.9 mg/dL
[2019-01-14 11:07] LABS: UR EPITHELIAL CELLS <10 /HPF (<10); URINE BACTERIA NEGATIVE /HPF; URINE CASTS GRANULAR PRESENT; URINE RBC 20-40 /HPF (<10); URINE YEAST NONE SEEN
--- NOTE | 2019-01-14 14:00 | INFECTIOUS DISEASE PROGRESS NO ---
DATE: 01/14/2019 PRESENT ILLNESS: The patient has right lower lobe pneumonia and a urinary tract infection. MEDICATIONS: The patient is on a combination of ceftaroline and Levaquin, the doses of which have been modified because of the patient's renal failure. PHYSICAL EXAMINATION: Vital Signs: Temperature is 97.8 degrees, pulse 93, respirations 16, blood pressure 116/73. General: This is an obese, middle-aged female who is lethargic. She is in no acute distress. Head/eyes/ears/nose/throat: She is able to hear my spoken words. She can see near objects. There is no drainage from the nose or ears. Her tongue does not have any white patches on it. Neck: No stiffness. Lungs: Clear to auscultation. Cardiovascular: Heart rate is regular. Abdomen: Soft and nontender. Neurologic: As mentioned above, patient is lethargic. She did follow request to move her extremities. There was no tremor. Integument: No rash. LAB AND RADIOLOGY: The patient's CBC shows a white count of 4980, hemoglobin 10.2, and platelet count 52,000. Urine culture is growing Klebsiella. Ultrasound of the abdomen showed hepatic steatosis. Creatinine is 3.5. GFR is 14. Blood cultures are sterile. Urine culture grew Klebsiella. ASSESSMENT AND PLAN: The patient has pneumonia and urinary tract infection. My plan is to continue the current antibiotics, namely ceftaroline and Levaquin. COMORBIDITIES: Her main comorbidity is that she is a cigarette smoker and has a history of alcohol abuse. cc: Mayur Chairez MD
--- NOTE | 2019-01-14 14:03 | Diag Imaging Result Doc PS360 ---
CHEST-1 VIEW - 01/14/2019 INDICATION: pneumonia COMPARISON: 01/12/2019 FINDINGS: There is slight improvement in the right basilar infiltrate. Heart size remains somewhat enlarged. No pneumothorax or large pleural effusion. Lung volumes are lower. IMPRESSION: Slight improvement in the right basilar infiltrate. Electronically signed by Art Rosario 01/14/2019 2:01 PM
--- NOTE | 2019-01-14 15:35 | PROGRESS NOTE ---
DATE: 01/14/2019 SUBJECTIVE: Patient resting in bed. Not in any obvious distress. OBJECTIVE: Vital Signs: Temperature 97.4, pulse 94, respirations 18, blood pressure 120/64, oxygen saturation 97%. HEENT: Atraumatic, normocephalic. Cardiovascular: S1, S2. Respiratory: Has evidence of good air entry bilaterally. Abdomen: Soft, nontender. No masses felt. Extremities: No evidence of significant edema in the lower extremities. Central Nervous System: No obvious focal deficit noted. LABORATORY DATA: As follows: WBC is 4.98, hematocrit 30.0, with a platelet count of 52,000. Sodium is 145, potassium 3.1, chloride is 107, bicarb is 21, BUN is 18, creatinine 3.5 . Urine culture positive for Klebsiella pneumonia. Blood cultures no growth after 48 hours. X-ray chest shows slight improvement in right basilar infiltrate. ASSESSMENT AND PLAN: 1. Septic shock. Maintain patient on intravenous fluids as well as pressors. Continue antibiotics. Follow up on culture report. 2. Pneumonia/urinary tract infection. Antibiotic management per Infectious Disease team. 3. Acute kidney injury. Nephrology is following. 4. Thrombocytopenia, most likely due to medication effect. Discontinue all offending drugs and follow up on platelet count. 5. Hypokalemia. Replace potassium level. Check magnesium level. Replacement will be cautious in light of renal impairment. 6. Alcoholism. Maintain patient on delirium tremens prophylaxis as well as thiamine, folic acid, as well as multivitamin. Check magnesium and phosphorus level. 7. Tobacco use history. Recommend nicotine patch. 8. DVT prophylaxis. SCDs. 9. GI prophylaxis. PPI. cc: Aram Cantor MD [facility]
[2019-01-14] MEDS: LEVAQUIN 250 MG/D5W 250 MG/50 ML IVPB IV SCH (15:36)
[2019-01-14] MEDS: SODIUM CHLORIDE 0.9% INJ SCH (15:36)
[2019-01-14] MEDS: PROTONIX IV SCH (15:36)
[2019-01-14] MEDS: ATIVAN IV PRN (23:30)
[2019-01-15] MEDS: DUONEB (A & A) INH SCH ×6 (03:16→23:18)
[2019-01-15] MEDS: TEFLARO 400 MG in NS 250 ML IV SCH ×2 (05:05→17:27)
[2019-01-15] MEDS: NS 1,000 ML IV SCH ×2 (05:05→15:51)
[2019-01-15 06:39] LABS: HEMATOCRIT 24.3 % (37.0-47.0); HEMOGLOBIN 8.2 g/dL (12.0-16.0); MCH 29.7 PG (27-31); MCHC 33.7 g/dL (33-37); MPV 10.1 FL (7.4-10.4); RBC 2.76 XMIL (4.2-5.4); RDW 17.1 % (11.5-14.5); WBC 13.47 X1000 (4.8-10.8)
[2019-01-15 07:16] LABS: ALBUMIN 3.1 g/dL (3.5-5.0); CALCIUM 10.1 mg/dL (8.8-10.2); CREATININE 6.9 mg/dL (0.5-0.9); MAGNESIUM 2.5 mg/dL (1.5-2.7); PHOSPHORUS 6.3 mg/dL (2.7-4.5)
[2019-01-15] MEDS: VITAMIN B-1 PO SCH (07:59)
[2019-01-15] MEDS: NICODERM PATCH TD SCH (07:59)
[2019-01-15] MEDS: FOLIC ACID PO SCH (07:59)
[2019-01-15] MEDS: KLOR-CON PO SCH (07:59)
[2019-01-15] MEDS: LIBRIUM PO SCH ×2 (07:59→12:45)
[2019-01-15] MEDS: ATIVAN IV PRN (08:43)
--- NOTE | 2019-01-15 09:12 | INFECTIOUS DISEASE PROGRESS NO ---
DATE: 01/15/2019 PRESENT ILLNESS: The patient has a right lower lobe pneumonia and a urinary tract infection. MEDICATIONS: The patient has been receiving, for the past 3 days, ceftaroline and Levaquin, the doses of which are modified because of the patient's renal failure. PHYSICAL EXAMINATION: Vital Signs: Temperature is 98.1 degrees, pulse 95, respirations 18, blood pressure 123/83. General: This is an obese, lethargic, middle-aged female. She is in no acute distress. Head, Eyes, Ears, Nose, and Throat: She can hear my spoken words. She can see near objects. She does not have any drainage from her nose or ears. She does not have any white coating of her tongue. Lungs: Clear to auscultation. Cardiovascular: Heart rate is regular. Abdomen: Soft and nontender. Neurologic: The patient is lethargic. She did follow requests to move her extremities. She does not have a tremor. Integument: No rash. LAB AND RADIOLOGY: There is no new radiology. CBC today showed an increase in the white blood cell count to 13,490, hemoglobin 8.2, and platelet count 391,000. Creatinine is 6.9. GFR is 6. ASSESSMENT AND PLAN: The patient has pneumonia and a urinary tract infection. Today, her white blood cell count increased. My plan is to continue ceftaroline and Levaquin, and I will repeat her CBC tomorrow morning. COMORBIDITIES: Cigarette smoking and a history of alcohol abuse. cc: Mayur Chairez MD
[2019-01-15] MEDS: SODIUM BICARBONATE PO SCH ×2 (11:22→21:31)
[2019-01-15 11:45] LABS: UR CREAT RANDOM 63.3 mg/dL (11-20); UR PROT RANDOM 19.7 mg/dL
--- NOTE | 2019-01-15 11:54 | NEPHROLOGY PROGRESS NOTE ---
DATE: 01/15/2019 TIME SEEN: 0620. SUBJECTIVE: Ms. Hussein is resting quietly in bed. She is awake. She states that she is just uncomfortable all over. OBJECTIVE: Vital Signs: Temperature 98.8 degrees, blood pressure 125/80, heart rate 95, respirations 14, she is on 5 L nasal cannula. Last recorded saturation 100%. General: This is a 53-year-old white female. She is resting quietly in bed. States that she is hurting all over. She is in no acute distress. Skin: Warm and dry. HEENT: Normocephalic, atraumatic. Conjunctiva is pale. Mucous membranes are dry. Neck: Supple. Trachea midline. She does have some hepatojugular reflux. Negative JVD. Cardiovascular: She is regular rate and rhythm on the monitor. She has no appreciable murmur or gallop. Lungs: Diminished breath sounds bilaterally. Equal excursion on O2. Abdomen: Soft, positive bowel sounds. Genitourinary: Morejon catheter is in place. Dark yellow urine out. Extremities: Trace edema. Some upper hand swelling. No lower extremity edema. Integumentary: Skin is warm and dry. Some redness noted to her bilateral hands. Neurological: She is alert to person and to place. INPUT AND OUTPUT: She has had 2856 in, 1675 out to Morejon catheter. LABORATORIES: Sodium 131, potassium 4, chloride 86, CO2 19, BUN 95, creatinine 6.9, glucose 145. Her anion gap is 26, calcium 10.1, phosphorus 6.3, albumin 3.1, magnesium 2.5. White count 13.47, hemoglobin 8.2, hematocrit 24.3. ASSESSMENT AND PLAN: 1. Acute kidney injury. Likely secondary to intravascular volume depletion in the setting of pneumonia. Her BUN and creatinine have slightly elevated in the last 24 hours. Her urine output appears stable. She remains on normal saline at 75 mL an hour. Her antibiotics are renally dosed. Due to these elevations in her BUN and creatinine, we will recheck her urine electrolytes. 2. Electrolytes and acid-base balance and anemia. The patient has mild anion gap acidosis with metabolic acidosis. We will check a plasma lactate and check for stools to see if patient is bleeding again. 3. Anemia. This patient's hemoglobin has dropped by 2 points. We will defer to the primary care team for possible intervention. 4. Right lower lobe pneumonia with urinary tract infection. This is followed by Dr. Mayur Chairez. The patient's antibiotics are renally dosed with Teflaro and Levaquin. I would like to thank you for allowing us to follow with this patient. Dictated by JEFFREY Kline for Mike Dozier MD Face to face encounter, data reviewed, discussed with Agustina Thomas on 01/15/19. I agree with the above assessment and plan of care. cc: JEFFREY Kline MD [facility]
--- NOTE | 2019-01-15 14:04 | PROGRESS NOTE ---
DATE: 01/15/2019 SUBJECTIVE: The patient is resting in bed. She is confused this morning. I was unable to establish effective communication with her this morning. She does mumble some words which are not understandable. OBJECTIVE: Vital Signs: Temperature 97.9 degrees, pulse 93, respiratory rate 20, blood pressure is 134/79, oxygen saturation is 95%. HEENT: Atraumatic, normocephalic. Cardiovascular system: S1, S2. Respiratory system: Has evidence of good air entry bilaterally. Abdomen: Soft, nontender. No masses felt. Extremities: No evidence of significant edema in the lower extremities. Central nervous system: The patient is awake, but disoriented. DIAGNOSTIC STUDIES: WBCs 13.47, hematocrit is 24.3 with a platelet count of 391,000. Sodium is 131, potassium is 4.0, chloride is 86, BUN is 95, creatinine is 6.9. Urine culture positive for Klebsiella pneumoniae. X-ray chest done yesterday shows a slight improvement in right basilar infiltrate. ASSESSMENT AND PLAN: 1. Septic shock. The patient will need to be on intravenous fluids as well as pressors if needed and continue antibiotics. Follow up on cultures. 2. Pneumonia/urinary tract infection. Continue antibiotics as recommended by the Infectious Disease team. 3. Acute kidney injury. Patient's renal function seems to be worsening. Nephrology is following. 4. Thrombocytopenia. May be related to the effect of alcohol on bone marrow, as patient is an alcoholic. Continue to follow up on platelet count. 5. Anemia. We will check iron studies, B12 and folate levels, and also stool for occult blood. 6. Alcoholism. Maintain patient on delirium tremens prophylaxis, as well as thiamine folic acid, multivitamin. Check magnesium and phosphorus levels and replace if needed. 7. Tobacco use history. Nicotine patch recommended. 8. Deep vein thrombosis (DVT) prophylaxis. SCD. 9. Gastrointestinal (GI) prophylaxis. PPI. cc: Aram Cantor MD [facility]
--- NOTE | 2019-01-15 14:30 | Diag Imaging Result Doc PS360 ---
EXAM: CT HEAD W/O CONTRAST HISTORY: encephalopathy TECHNIQUE: CT head without contrast COMPARISON: 12/09/2016 FINDINGS: No parenchymal hemorrhage. No epidural or subdural hematoma. No subarachnoid hemorrhage. There is mild atrophy with mild chronic microvascular ischemic changes. No mass identified on this noncontrasted exam. No hydrocephalus. Prominent mucosal thickening in the right sphenoid sinus with moderate mucosal thickening in the right frontal and ethmoid sinuses IMPRESSION: 1.No hemorrhage 2.Mild atrophy with mild chronic microvascular ischemic changes 3.Sinusitis This exam was performed using automated exposure control, adjustment of mA or kV according to patient size, and/or use of iterative reconstruction technique. Electronically signed by Gabino Adams 01/15/2019 2:28 PM
[2019-01-15] MEDS: SODIUM CHLORIDE 0.9% INJ SCH (14:33)
[2019-01-15] MEDS: PROTONIX IV SCH (14:34)
[2019-01-15 15:08] LABS: IRON SATURATION 75 %; TIBC 107 ug/dL; TOTAL IRON 80 ug/dL (49-151); UNBOUND IRON 27 ug/dL (112-346)
[2019-01-15 15:35] LABS: FERRITIN 1256 ng/mL (13-150)
[2019-01-15] MEDS: LEVAQUIN 250 MG/D5W 250 MG/50 ML IVPB IV SCH (15:51)
[2019-01-16] MEDS: ATIVAN IV PRN ×3 (02:16→22:29)
[2019-01-16] MEDS: DUONEB (A & A) INH SCH ×6 (03:14→22:49)
[2019-01-16] MEDS: TEFLARO 400 MG in NS 250 ML IV SCH ×2 (05:43→17:41)
[2019-01-16] MEDS: NS 1,000 ML IV SCH (05:46)
[2019-01-16 05:52] LABS: BASO# 0.01 X1000 (0.0-0.2); BASO% 0.3 % (0.0-0.8); EOS# 0.03 X1000 (0.0-0.7); EOS% 0.8 % (0.0-10.0); HEMATOCRIT 26.2 % (37.0-47.0); HEMOGLOBIN 8.7 g/dL (12.0-16.0); IMM GRAN# 0.17 X1000 (0.0-0.04); IMM GRAN% 4.6 % (0.0-0.5); LYMPH# 0.77 X1000 (1.2-3.4); LYMPH% 20.9 % (20.5-51.1); MCH 36.4 PG (27-31); MCHC 33.2 g/dL (33-37); MCV 109.6 FL (81-99); MONO% 10.8 % (1.7-9.3); MPV 11.3 FL (7.4-10.4); NEUT# 2.31 X1000 (1.4-6.5); NEUT% 62.6 % (42.2-75.2); PLT 102 X1000 (130-400); RBC 2.39 XMIL (4.2-5.4); RDW 16.2 % (11.5-14.5); WBC 3.69 X1000 (4.8-10.8)
[2019-01-16 06:43] LABS: ALBUMIN 1.7 g/dL (3.5-5.0); CALCIUM 8.1 mg/dL (8.8-10.2); CREATININE 1.6 mg/dL (0.5-0.9); PHOSPHORUS 3.1 mg/dL (2.7-4.5); POTASSIUM 3.1 mmol/L (3.5-5.1)
[2019-01-16 06:44] LABS: ALLEN TEST YES; BE -2.3 mmoll (-3.0-3.0); BLOOD TYPE ARTERIAL; METHB 0.7 % (0.0-1.5); O2(CT) 20.4 mL/dL (15.0-23.0); O2HB 94.8 % (95.0-99.0); PCO2(98.6) 38 mmHg (35-45); PO2(98.6) 84 mmHg (60-100); SAMPLE BLOOD; SAO2 97.3 % (95.0-100.0); THB 15.3 g/dL (11.5-17.4); pH(98.6) 7.38 (7.35-7.45)
[2019-01-16 06:45] LABS: MODALITY CANNULA
[2019-01-16] MEDS: NICODERM PATCH TD SCH (09:08)
[2019-01-16] MEDS: SODIUM BICARBONATE PO SCH ×2 (09:10→20:28)
[2019-01-16] MEDS: FOLIC ACID PO SCH (09:10)
[2019-01-16] MEDS: KLOR-CON PO SCH (09:10)
[2019-01-16] MEDS: VITAMIN B-1 PO SCH (09:10)
[2019-01-16] MEDS: D5 1/2 NS 1,000 ML IV SCH (09:16)
--- NOTE | 2019-01-16 09:28 | NEPHROLOGY PROGRESS NOTE ---
DATE: 01/16/2019 Date Seen: 01/16/2019 Time Seen: 06:20 SUBJECTIVE: Ms. Husseni is resting quietly in bed. She opens her eyes to verbal stimuli. She is a little bit more lethargic. OBJECTIVE: Her most recent vital signs: Temperature 98.9 degrees, blood pressure 151/94, heart rate is 90, respirations are currently at 32. She remains on 3 L nasal cannula. Last recorded saturation is 98. She has had 2200 in 1250 out to Morejon catheter. LABS: Sodium is 150, potassium 3.1, chloride 116, CO2 19, BUN 49, creatinine is down to 1.6, glucose 116. Her anion gap is 15, calcium 8.1, phosphorus 3.1, albumin 1.7. White count 3.69, hemoglobin 8.7, hematocrit 26.2 with a platelet count of 102,000. The patient has an ammonia level of 27. ABGs requested for this a.m. indicate a pH of 7.38, CO2 of 38, PO2 of 84. She has a bicarb of 23, lactate of 1.1. This is on 3 L nasal cannula. PHYSICAL EXAMINATION: General: This is a 53-year-old white female. She appears chronically ill. She is in no acute distress. Skin: Warm and dry. HEENT: Normocephalic, atraumatic. Conjunctiva is pale. She has CRISSY. Mucous membranes are dry. Neck: Supple. Trachea midline. She does have positive JVD with hepatojugular reflux. Cardiovascular: She is regular rate and rhythm. No appreciable murmur or gallop. Lungs: Clear to auscultation anterior. Equal excursion on O2. Abdomen: Large, round, soft nontender. Positive bowel sounds. Genitourinary: Morejon catheter is in place. Not inspected. Adequate urine documented out. Extremities: Have 2+ lower extremity edema. Neurological: As mentioned above. She does open her eyes to verbal stimuli and nods to questions. ASSESSMENT AND PLAN: 1. Acute kidney injury, more than likely secondary to intravascular volume depletion in the setting of pneumonia. Her BUN and creatinine were essentially elevated yesterday from a creatinine of 3.5 up to 6.9. It is now down to 1.6 with a BUN of 49 which leads us to believe that yesterday's data may have been a lab error. She has adequate urine output no indications for intervention. 2. Electrolytes. Patient's sodium is 150 with a potassium of 3.1. We will change her IV fluids to D5 half-normal and add potassium if it has not been ordered at this time. 3. Acid-base balance. This is acceptable with an anion gap that is currently closing down to 15. 4. Right lower lobe pneumonia with a urinary tract infection. This is currently being followed by Dr. Chairez and the primary care team. She is on renal dosed antibiotics. I would like to thank you for allowing us to follow with this patient. Dictated by JEFFREY Kline for Mike Dozier MD Face to face encounter, data reviewed, discussed with Agustina Thomas on 01/16/19. I agree with the above assessment and plan of care. cc: JEFFREY Kline MD [facility]
[2019-01-16] MEDS: POTASSIUM CHLORIDE 20 MEQ/SWI 20 MEQ/100 ML IVPB IV SCH ×2 (09:54→12:16)
--- NOTE | 2019-01-16 15:01 | INFECTIOUS DISEASE PROGRESS NO ---
DATE: 01/16/2019 PRESENT ILLNESS: The patient has a right lower lobe pneumonia and a urinary tract infection. Based on today's CT scan of the head, the patient also has sphenoid, frontal, and ethmoid sinusitis as well. MEDICATION: Day 4 of ceftaroline and levofloxacin. PHYSICAL EXAMINATION: Vital Signs: Temperature is 97.8 degrees, pulse 95, respirations 25, blood pressure 110/78. General: This is an obese, lethargic, middle-aged female. She is in no acute distress. Head eyes, ears, nose and throat: There is no drainage coming from the nose or ears. Her sinuses were not tender. Neck: No stiffness. Lungs: Clear to auscultation. Cardiovascular: Heart rate is regular. Abdomen: Soft and nontender. Neurologic: The patient is lethargic. The patient did not follow my request to move her extremities. DIAGNOSTIC STUDIES: CT scan of the head showed sphenoid, frontal, and ethmoid sinusitis. Creatinine is 1.6. GFR is 34. Blood gases show a pH of 7.38, a PO2 of 84, and a pCO2 of 38. CBC shows a white count of 3690, hemoglobin 8.7, and platelet count 102,000. Urine culture is growing Klebsiella. ASSESSMENT AND PLAN: Patient has: 1. Pneumonia. 2. Urinary tract infection. 3. Sinusitis. My plan is to continue ceftaroline and Levaquin. COMORBIDITIES: 1. Cigarette smoking. 2. History of alcohol abuse. cc: Mayur Chairez MD [facility]
[2019-01-16] MEDS: SODIUM CHLORIDE 0.9% INJ SCH (15:35)
[2019-01-16] MEDS: PROTONIX IV SCH (15:35)
[2019-01-16] MEDS: LEVAQUIN 250 MG/D5W 250 MG/50 ML IVPB IV SCH (15:36)
--- NOTE | 2019-01-16 15:38 | PROGRESS NOTE ---
DATE: 01/16/2019 SUBJECTIVE: The patient is resting in bed. She is confused. She is also difficult to arouse. OBJECTIVE: Vital Signs: Temperature 97.5 degrees, pulse 89, respirations 18, blood pressure 160/87 and oxygen is 96%. HEENT: She is atraumatic, normocephalic. Cardiovascular: S1, S2. Respiratory: There is evidence of good air entry bilaterally. Abdomen: Soft, nontender. No masses felt. Extremities: No evidence of significant edema. Central nervous system: The patient is barely arousable. She has also been confused when she could be aroused. LABORATORY: WBC is 3.69, hematocrit 26.2 with a platelet count of 102,000. ABG 7.3/30/84/97.2 percent. Sodium is 150, potassium 3.1, chloride is 106, bicarb is 19, BUN 14 and creatinine is 1.6. ASSESSMENT AND PLAN: 1. Septic shock. Maintain patient on intravenous fluids as well as pressors if needed. Continue antibiotics. Follow up on cultures. 2. Pneumonia/urinary tract infection. Continue antibiotics as recommended by infectious disease. 3. Acute kidney injury. Renal function improved. 4. Hypokalemia. Replace potassium. Nephrology managing. 5. Hypernatremia. Use hypotonic solution. Nephrology management. 6. Thrombocytopenia, probably related to bone marrow effect from alcohol. Follow up on patient's platelet count. 7. Anemia. Follow up hemoglobin and hematocrit. Transfuse packed red blood cells if needed. 8. Alcoholism. Maintain patient on delirium tremens prophylaxis as well as thiamine folic acid, and also multivitamin. Check magnesium and phosphorus level and phosphorus level, and replace if needed. 9. Tobacco use history. Nicotine patch recommended. 10. Deep vein thrombosis prophylaxis. Sequential compression devices. 11. Gastrointestinal prophylaxis. Proton pump inhibitor. cc: Aram Cantor MD [facility]
[2019-01-17] MEDS: D5 1/2 NS 1,000 ML IV SCH (00:07)
[2019-01-17] MEDS: DUONEB (A & A) INH SCH ×6 (02:54→23:07)
[2019-01-17 05:01] LABS: HEMATOCRIT 25.1 % (37.0-47.0); HEMOGLOBIN 8.3 g/dL (12.0-16.0); MCH 37.1 PG (27-31); MCHC 33.1 g/dL (33-37); MCV 112.1 FL (81-99); MPV 10.7 FL (7.4-10.4); RBC 2.24 XMIL (4.2-5.4); RDW 16.3 % (11.5-14.5); WBC 4.33 X1000 (4.8-10.8)
[2019-01-17 05:55] LABS: ALBUMIN 2.1 g/dL (3.5-5.0); CALCIUM 7.8 mg/dL (8.8-10.2); CREATININE 1.3 mg/dL (0.5-0.9); PHOSPHORUS 2.9 mg/dL (2.7-4.5); POTASSIUM 3.2 mmol/L (3.5-5.1)
[2019-01-17] MEDS: TEFLARO 400 MG in NS 250 ML IV SCH ×2 (06:03→18:24)
[2019-01-17] MEDS ORDERED: D5W 1,000 ML IV SCH (07:15)
[2019-01-17] MEDS: ATIVAN IV PRN ×2 (07:39→12:23)
[2019-01-17] MEDS ORDERED: MAGNESIUM SULFATE 2 GM/S.W.I. 2 GM/50 ML IVPB IV ONE (07:48)
[2019-01-17] MEDS ORDERED: ATIVAN IV PRN ×2 (08:06→08:13)
[2019-01-17] MEDS ORDERED: LABETALOL IV PRN (08:12)
[2019-01-17] MEDS ORDERED: DIASTAT 10 MG PR SCH (08:15)
[2019-01-17 08:27] LABS: ALLEN TEST YES; BE -0.5 mmoll (-3.0-3.0); BLOOD TYPE ARTERIAL; HCO3-(ACT) 24.5 mmoll (20.0-26.0); METHB 1.4 % (0.0-1.5); O2(CT) 12.1 mL/dL (15.0-23.0); O2HB 92.1 % (95.0-99.0); PCO2(98.6) 39 mmHg (35-45); PO2(98.6) 69 mmHg (60-100); SAMPLE BLOOD; SAO2 95.2 % (95.0-100.0); THB 9.3 g/dL (11.5-17.4)
[2019-01-17 08:28] LABS: MODALITY CANNULA
--- NOTE | 2019-01-17 08:42 | NEPHROLOGY PROGRESS NOTE ---
DATE: 01/17/2019 SUBJECTIVE: Ms. Hussein is resting quietly in bed. She opens her eyes to verbal stimuli. She does deny pain. OBJECTIVE: Her most recent vital signs, temperature 97.8 degrees, blood pressure 149/90, heart rate is 106, respirations are 23. She is on 2 L nasal cannula. Last recorded saturation is 96%. She has had 2890 in, 1485 out to Morejon catheter. LABS: Sodium is 153, potassium 3.2, chloride 119, CO2 22, BUN 32, creatinine 1.3, glucose 129. Anion gap of 12, calcium 7.8, phosphorus 2.9, albumin 2.1, magnesium 1.1. Her white count 4.33, hemoglobin 8.3, hematocrit 25.1 with a platelet count of 130,000. Her TSH is 9.32. PHYSICAL EXAMINATION: General: This is a 53-year-old white female resting quietly in bed. She is in no acute distress though she appears chronically ill. Skin: Warm and dry. HEENT: Normocephalic, atraumatic. Conjunctiva is pale. She has CRISSY. Mucous membranes are dry. Neck: Supple. Trachea midline. No JVD. Cardiovascular: She is regular rate and rhythm. She is without murmur or gallop. Lungs: Diminished inspiratory effort. Clear to auscultation. Remains on O2 support. Abdomen: Soft, nontender, positive bowel sounds. Genitourinary: Not inspected. Morejon catheter is in place with adequate urine output documented. Extremities: Have no edema. No clubbing or cyanosis. Neurological: As mentioned above. ASSESSMENT AND PLAN: Acute kidney injury. Patient's BUN and creatinine have continued to improve since her hospitalization. BUN of 32 with a creatinine of 1.3 today. She has had adequate urine output. Her electrolytes remain fairly stable. Her sodium is up to 153. We will change her IV fluids to D5W to run at 75 mL an hour. PLAN: Due to these findings with improvement to her renal status, we will sign off and remain available if needed. I would like to thank you for allowing us to follow with this patient. Dictated by JEFFREY Kline for Mike Dozier MD Face to face encounter, data reviewed, discussed with Agustina Thomas on 01/17/19. I agree with the above assessment and plan of care. cc: JEFFREY Kline MD [facility]
--- NOTE | 2019-01-17 08:43 | Diag Imaging Result Doc PS360 ---
EXAM: CHEST-PORTABLE 01/17/2019 HISTORY: dyspnea, follow up right lower lobe infiltrate TECHNIQUE: AP portable upright at 0833 COMMENT: There is hazy bilateral alveolar opacity which was not present on 01/14/2019 with the exception of the right lower lobe. IMPRESSION: Pulmonary edema. The possibility of superimposed pneumonia in the right lower lobe cannot be excluded. Electronically signed by Mele Dykes 01/17/2019 8:41 AM
[2019-01-17] MEDS ORDERED: LASIX IV ONE ×2 (08:50→18:00)
[2019-01-17] MEDS: POTASSIUM CHLORIDE 20 MEQ/SWI 20 MEQ/100 ML IVPB IV SCH ×2 (09:12→10:28)
[2019-01-17] MEDS: NICODERM PATCH TD SCH (09:13)
[2019-01-17] MEDS: SINEQUAN PO SCH (09:13)
[2019-01-17] MEDS: SODIUM BICARBONATE PO SCH (09:28)
[2019-01-17] MEDS: FOLIC ACID PO SCH (09:28)
[2019-01-17] MEDS: VITAMIN B-1 PO SCH (09:28)
[2019-01-17] MEDS ORDERED: TYLENOL PR PRN (10:09)
[2019-01-17] MEDS: LEVAQUIN 750 MG/D5W 750 MG/150 ML IVPB IV SCH (10:28)
[2019-01-17 10:38] LABS: INR 1.26; PROTIME 16.7 Seconds (11.0-16.0)
--- NOTE | 2019-01-17 11:26 | INFECTIOUS DISEASE PROGRESS NO ---
DATE: 01/17/2019 PRESENT ILLNESS: The patient has pneumonia, urinary tract infection, and sphenoid, frontal, and ethmoid sinusitis. MEDICATIONS: The patient has been on ceftaroline and Levaquin now for 5 days. PHYSICAL EXAMINATION: Vital Signs: Temperature is 98, pulse 119, respirations 22, blood pressure 149/90. General: This is an obese, delirious, middle-aged female. She does not appear to be in any acute distress. Head/eyes/ears/nose/throat: No drainage is noted from the nose or ears. I could not visualize her mouth well. Neck: No pain with movement. Lungs: Clear to auscultation. Cardiovascular: Heart rate is regular. Abdomen: Soft and nontender. Neurologic: The patient today is in a delirium. She is moving constantly in her bed. LABORATORY AND RADIOGRAPHIC STUDIES: CBC today shows a white count of 4330, hemoglobin 8.3, and platelet count 130,000. Chest x-ray shows bilateral opacities. Blood gases show a pH of 7.4, a PO2 of 69, and a pCO2 of 39. Creatinine is 1.3. GFR is 43. ASSESSMENT AND PLAN: The patient has pneumonia, urinary tract infection and sinusitis. I plan to continue ceftaroline and Levaquin. COMORBIDITIES: Cigarette smoking and history of alcohol abuse. cc: Mayur Chairez MD
--- NOTE | 2019-01-17 11:32 | CONSULTATION ---
DATE OF CONSULTATION: 01/17/2019 HISTORY: Ms. Hussein is 53 years old. She was admitted with septic shock, pneumonia, UTI, pancytopenia and a few metabolic abnormalities. There was initial history that her problems with ethanol had stopped in the past, but I think more recent and more valid history that she had continued ethanol until recently, and she may be experiencing DTs now. She has been managed with benzodiazepines. One of the admission notes indicates possible past history of stroke with right- sided weakness. She has been afebrile. CT scan without contrast shows usual changes, nothing focal or acute, no bleeding. Lab showed initial WBC count 3690, later 4330. Hemoglobin 8.7 and later 8.3. Platelets 102,000 and then 130,000. BUN at 32 is below her baseline based on review of prior lab records available on hospital computer. Sodium was 150 and then 153. Hospital chart shows no urine drug screen obtained this admission. In 2017, urine drug screen was positive for opiates and for benzodiazepine. I have reviewed the home medicine list provided for this admission, but I am not certain it is accurate. There is tramadol, quetiapine, furosemide, KCl, polyethylene glycol, folic acid, ergocalciferol, doxepin, cholecalciferol and atenolol. There is not opiate other than tramadol, and there is no benzodiazepine listed. PHYSICAL EXAMINATION: On exam, Ms. Hussein is obtunded. She was not attentive to brief questioning. There is full lateral eye movement with passive head turning. Pupils are large and both react slightly to bright light. Corneal reflex is present bilaterally. Facial motility is diminished bilaterally, but symmetric. Tongue is midline. Limb tone is symmetric. Plantar response is silent bilaterally. She withdrew limbs symmetrically with moderate noxious stimulation. Head is unremarkable. Neck is supple without meningismus. IMPRESSION: Global encephalopathy. Currently, likely to be multifactorial with contributions from the medication she has received here, and the relatively minor metabolic findings with most significant contribution from ethanol withdrawal. There could be a baseline cognitive impairment related to her chronic ethanol use and, if present, that would predispose her to more dense and protracted encephalopathy with any toxic/metabolic disturbance. I do not see anything to suggest seizure, acute stroke, other acute neurologic event. I do not have any urgent suggestion now. Depending on her clinical course, we might consider repeat imaging and EEG. Thanks for asking Neurology to see Ms. Hussein. cc: MD JENNY Andres III
--- NOTE | 2019-01-17 11:50 | PROGRESS NOTE ---
DATE: 01/17/2019 INTERVAL HISTORY: The patient was becoming tachycardic overnight, and her SpO2 was 92% on 2 L nasal cannula. She has also been appearing increasingly agitated. SUBJECTIVE: The patient follows simple commands like opening mouth and opening eyes. However, appears in moderate respiratory distress and appears delirious. Does not engage in meaningful conversation. OBJECTIVE: Current Vital Signs: Temperature of 97.8 degrees, pulse of 103 per minute, blood pressure of 149/90, saturating 92% on 4 L nasal cannula. Input and output suggest she had 1.8 L urine output yesterday. However, cumulative she is positive 7 L. General: She has diffuse erythema affecting entire body. HEENT: Pupils are equal, round, reacting to light bilaterally. Oral cavity has some sputum and thick saliva. Lungs: Air entry is bilaterally equal without any wheeze. She does have bilateral rhonchi. However, examination is restricted because the patient has been tossing in the bed frequently, and proper examination could not be performed. Cardiovascular: S1, S2 normal. Regular. No murmur, rub, or gallop. She appears to be tachycardic. Appears sinus on monitor. Abdomen: Soft, nontender. She also has bilateral lower extremity edema. Neurologic: She is confused and agitated. Does not participate in proper neurological examination. However, she is moving all extremities spontaneously. She does have Morejon catheter in place, and a PICC line order has been placed. LABORATORY DATA: WBC of 4.3, hemoglobin of 8.3, platelet count of 130,000. Normal ABG. Hypernatremia, hypokalemia, hyperchloremia. Her bicarbonate is 22. Her acute kidney injury is resolving. She does have significant hypomagnesemia. MICROBIOLOGY: Urine culture growing Klebsiella pneumoniae, sensitive to cefazolin. IMAGING: Chest x-ray suggests bilateral pulmonary edema. ASSESSMENT AND PLAN: 1. Acute hypoxic respiratory failure due to bilateral pulmonary edema in the setting of acute kidney injury and volume overload. Give the patient one-time intravenous Lasix and another Lasix in the afternoon time after BMP. Stop intravenous fluids. ABG does not suggest hypercarbia. Continue oxygenation to maintain saturation more than 92%. Her pneumonia is also contributing to her hypoxia. 2. Septic shock secondary to urinary tract infection and right lower lobe pneumonia. She is off intravenous norepinephrine since 01/16/2019. Continue intravenous ceftaroline, and increase the dose of levofloxacin considering improving kidney function as per Infectious Disease on board. 3. Acute kidney injury, likely in the setting of septic shock, currently improving. She does have profound electrolyte abnormalities due to acute kidney injury as well as intravenous volume resuscitation. Follow up with BMP. Continue urine catheter for close input and output monitoring, and replete electrolytes as necessary. Hypomagnesemia is currently being repleted, and so is hypokalemia. 4. Acute encephalopathy in the setting of alcohol withdrawal with delirium tremens and septic shock. The patient has been receiving intravenous lorazepam as needed, but it has not been helping her despite multiple dosing. I will start the patient on intravenous lorazepam drip. Continue folic acid and thiamine, and potentially I will change it to parenteral form. Continue home quetiapine and doxepin that she was taking for her history of suspected bipolar mood disorder. However, I do not have current information from her medical records. 5. Acute anemia with iron studies suggestive of macrocytic anemia and anemia of chronic disease. Continue to monitor CBC. Her thrombocytopenia is also likely in the setting of alcohol use disorder. 6. Disposition. The patient remains inside the hospital. Her condition is critical considering septic shock and alcohol withdrawal with delirium tremens. I reached out to patient's , who did not crop picker, and had left a voice message, and then I called the patient's daughter and informed her about the patient's medical condition. Apparently, the patient's daughter has not seen her mother since the last 1 year, and has only talked with her on the phone. Apparently, the patient has had previous admissions for alcohol withdrawal, and had undergone rehab. However, she relapsed and has been drinking alcohol on a daily basis. TIME SPENT: More than 30 minutes of critical care time were spent in taking care of this patient. Daughter's questions were answered satisfactorily. cc: Sotero Holly MD
[2019-01-17] MEDS: FOLIC ACID 1 MG in NS 50 ML IV SCH (11:53)
[2019-01-17] MEDS: THIAMINE IM SCH (11:53)
[2019-01-17] MEDS: ATIVAN 20 MG in NS 190 ML IV SCH ×2 (12:51→21:43)
[2019-01-17] MEDS ORDERED: NS 250 ML ONE (14:08)
[2019-01-17] MEDS: SODIUM CHLORIDE 0.9% INJ SCH (16:01)
[2019-01-17] MEDS: PROTONIX IV SCH (16:01)
[2019-01-17] MEDS: SEROQUEL PO SCH (21:05)
[2019-01-18] MEDS: DUONEB (A & A) INH SCH ×6 (03:36→22:59)
[2019-01-18 04:41] LABS: ALLEN TEST YES; BE 5.9 mmoll (-3.0-3.0); BLOOD TYPE ARTERIAL; HCO3-(ACT) 29.5 mmoll (20.0-26.0); METHB 1.3 % (0.0-1.5); O2(CT) 14.8 mL/dL (15.0-23.0); O2HB 96.8 % (95.0-99.0); PO2(98.6) 171 mmHg (60-100); SAMPLE BLOOD; SAO2 99.6 % (95.0-100.0); THB 10.6 g/dL (11.5-17.4)
[2019-01-18 04:42] LABS: MODALITY NRB; PCO2(98.6) 69 mmHg (35-45)
[2019-01-18 06:06] LABS: HEMATOCRIT 27.1 % (37.0-47.0); HEMOGLOBIN 8.4 g/dL (12.0-16.0); MCH 36.5 PG (27-31); MCV 117.8 FL (81-99); MPV 10.7 FL (7.4-10.4); RBC 2.3 XMIL (4.2-5.4); RDW 16.9 % (11.5-14.5); WBC 5.83 X1000 (4.8-10.8)
[2019-01-18] MEDS: TEFLARO 400 MG in NS 250 ML IV SCH ×2 (06:06→17:30)
[2019-01-18 06:30] LABS: ALBUMIN 2.5 g/dL (3.5-5.0); CALCIUM 7.7 mg/dL (8.8-10.2); PHOSPHORUS 5.2 mg/dL (2.7-4.5); POTASSIUM 3.5 mmol/L (3.5-5.1)
--- NOTE | 2019-01-18 06:52 | Diag Imaging Result Doc PS360 ---
CHEST-PORTABLE - 01/18/2019 INDICATION: increased wob COMPARISON: 01/17/2019 FINDINGS: There is a new right PICC line with the catheter tip at the lower SVC. Heart size remains normal. There is been significant improvement in the bilateral infiltrates. There is still some residual opacification mainly on the right side which may indicate a pleural effusion. IMPRESSION: Significant improvement in the extensive bilateral infiltrates. Electronically signed by Art Rosario 01/18/2019 6:49 AM
[2019-01-18 07:59] LABS: ALLEN TEST YES; BE 6.5 mmoll (-3.0-3.0); BLOOD TYPE ARTERIAL; METHB 0.9 % (0.0-1.5); O2(CT) 12.3 mL/dL (15.0-23.0); O2HB 96.8 % (95.0-99.0); PO2(98.6) 109 mmHg (60-100); SAMPLE BLOOD; SAO2 99.2 % (95.0-100.0); THB 8.9 g/dL (11.5-17.4)
[2019-01-18 08:01] LABS: MODALITY BI PAP
[2019-01-18 08:04] LABS: PCO2(98.6) 52 mmHg (35-45)
[2019-01-18] MEDS: THIAMINE IM SCH (08:25)
[2019-01-18] MEDS: POTASSIUM CHLORIDE 20 MEQ/SWI 20 MEQ/100 ML IVPB IV SCH ×2 (08:26→10:49)
[2019-01-18] MEDS: LOVENOX SUBQ SCH (08:27)
[2019-01-18] MEDS: MAGNESIUM SULFATE 2 GM/S.W.I. 2 GM/50 ML IVPB IV SCH ×3 (08:27→10:48)
[2019-01-18] MEDS: NICODERM PATCH TD SCH (08:27)
--- NOTE | 2019-01-18 08:32 | PROGRESS NOTE ---
DATE: 01/18/2019 INTERVAL HISTORY: The patient had responded well to 2 doses of Lasix yesterday and the chest x- ray today morning shows significant improvement in her pulmonary edema. However, ABG had suggested acute hypercapnic respiratory failure, likely because of Ativan drip that she was started on, considering her delirium tremens for which she was started on mask breathing. Repeat ABG has been ordered. SUBJECTIVE: The patient does not appear in any acute distress. She is very drowsy. However, she becomes agitated to painful stimuli and starts flickering the extremities. Otherwise she does not open eyes or engage in meaningful conversation. She is on BiPAP. CURRENT VITALS: Suggests she has been having fever episodes with T-max of 101.8 degrees yesterday morning. Continues to have low-grade of fever. Pulse has been 108 to 114 per minute, blood pressure has been 125/74, saturating 99% on BiPAP. Input and output suggests -5 L in the last 24 hours. LABS: Suggestive off macrocytic anemia with hemoglobin of 8.4, acute hypercarbic respiratory failure with pCO2 of 69 and pH of 7.3, hypernatremia, hyperchloremia, improving kidney function, hypomagnesemia. Chest x-ray suggestive off improvement in bilateral alveolar infiltrate and pulmonary edema. No new microbiological data. ASSESSMENT AND PLAN: 1. Acute hypoxic hypercarbic respiratory failure due to bilateral pulmonary edema in the setting of acute kidney injury leading to volume overload, bilateral pneumonia, and respiratory depression and due to delirium tremens and lorazepam. She is status post intravenous Lasix with improvement in oxygenation. Continue BiPAP and follow up with serial ABG. Continue to withhold any intravenous fluid. 2. Septic shock secondary to urinary tract infection, predominantly right lower lobe pneumonia off norepinephrine since January 16. Continue intravenous ceftaroline and intravenous levofloxacin as per ID recommendations. I would appreciate further recommendation as she continues to have fever episodes. 3. Acute kidney injury in the setting of septic shock, hypomagnesemia, hypokalemia, hypernatremia and hyperchloremia related to intravenous volume resuscitation. Her BAKARI is improving. Follow up with serial BMP, Morejon catheter for close input and output monitoring, replete magnesium and potassium. I will restart her on hypotonic fluids once her respiratory status improves. 4. Acute encephalopathy in the setting of alcohol withdrawal with delirium tremens and septic shock. Continue the patient on lorazepam drip and titrate down as tolerated, continue folic acid and thiamine. Once patient is able to take p.o. continue her on home quetiapine and doxepin with suspected mood disorder history as per her home medication. 5. Acute anemia, macrocytic, likely related to anemia of chronic disease and anemia related to chronic alcohol use. Continue to monitor CBC. Her thrombocytopenia is also because of alcohol use disorder, which is improved. 6. Disposition: The patient's condition remains critical. More than 30 minutes of critical care time was spent in taking care of this patient. I called patient's again and he did not picker, so I have left a voice message. I called the patient's daughter and informed her about patient's condition and answered all of her questions. cc: Sotero Holly MD MTDD
--- NOTE | 2019-01-18 09:29 | PROGRESS NOTE ---
DATE: 01/18/2019 SUBJECTIVE: Ms. Hussein continues heavily sedated. OBJECTIVE: She has full lateral eye movement with passive head turning. She demonstrated brisk withdrawal in each limb. With vigorous stimulation, she turned her head [id number]. She did not communicate with me and she did not follow commands. Neck remains supple. IMPRESSION: Global encephalopathy, currently sedated, clinical syndrome consistent with alcohol withdrawal. No new suggestion from Neurology standpoint today. Thanks for asking us to see Ms. Hussein. cc: Lamonte Garcia III, MD MTDD
[2019-01-18] MEDS: SINEQUAN PO SCH (09:31)
[2019-01-18] MEDS: LEVAQUIN 750 MG/D5W 750 MG/150 ML IVPB IV SCH (09:44)
[2019-01-18] MEDS: FOLIC ACID 1 MG in NS 50 ML IV SCH (11:21)
[2019-01-18] MEDS: ATIVAN 20 MG in NS 190 ML IV SCH (13:23)
[2019-01-18] MEDS: SODIUM CHLORIDE 0.9% INJ SCH (14:46)
[2019-01-18] MEDS: PROTONIX IV SCH (14:46)
--- NOTE | 2019-01-18 18:00 | INFECTIOUS DISEASE PROGRESS NO ---
DATE: 01/18/2019 PRESENT ILLNESS: The patient has pneumonia, urinary tract infection with Klebsiella, and sphenoid frontal and ethmoid sinusitis. MEDICATIONS: The patient is day 6 for being on ceftaroline and Levaquin. PHYSICAL EXAMINATION: Vital Signs: Temperature is 98.1, pulse 91, respirations 20, blood pressure 112/73. General: This is an obese, and sedated middle-aged female. She is in no acute distress, although she has a BiPAP mask on currently. HEENT: As mentioned above, patient has a BiPAP mask on. There is no drainage from the nose or the ears. I could not visualize her mouth. Neck: No pain with movement. Lungs: Clear to auscultation. Cardiovascular: Heart rate is regular. Abdomen: Soft and nontender. Neurologic: The patient is being sedated. She was not moving much at all while I was in the room. LAB AND X-RAY: Chest x-ray shows improvement in the infiltrates. The CBC shows a white count of 5830, hemoglobin 8.4, and platelet count 154,000. Blood gases show a pH of 7.4, pO2 of 109, pCO2 of 52 creatinine is 1. GFR is 58. ASSESSMENT AND PLAN: Patient has pneumonia, urinary tract infection and sinusitis. I plan to continue ceftaroline and Levaquin. COMORBIDITIES: The patient smokes cigarettes and is an alcoholic. It is felt that the patient is having withdrawal from alcohol that is causing her altered mental status at this time. cc: Mayur Chairez MD
[2019-01-18] MEDS ORDERED: D5W 1,000 ML IV SCH (19:15)
[2019-01-18] MEDS: SEROQUEL PO SCH (20:02)
[2019-01-19] MEDS: DUONEB (A & A) INH SCH ×6 (03:05→23:39)
[2019-01-19 04:21] LABS: ALLEN TEST YES; BE 8.5 mmoll (-3.0-3.0); BLOOD TYPE ARTERIAL; HCO3-(ACT) 31.6 mmoll (20.0-26.0); METHB 0.8 % (0.0-1.5); MODALITY BI PAP; O2(CT) 14.8 mL/dL (15.0-23.0); O2HB 96.8 % (95.0-99.0); PCO2(98.6) 47 mmHg (35-45); PO2(98.6) 99 mmHg (60-100); SAMPLE BLOOD; SRATE 24 BPM; THB 10.8 g/dL (11.5-17.4); pH(98.6) 7.46 (7.35-7.45)
[2019-01-19] MEDS: TEFLARO 400 MG in NS 250 ML IV SCH ×2 (05:04→17:02)
[2019-01-19] MEDS: LOVENOX SUBQ SCH (05:04)
[2019-01-19 05:33] LABS: BASO# 0.06 X1000 (0.0-0.2); BASO% 1.3 % (0.0-0.8); EOS# 0.05 X1000 (0.0-0.7); EOS% 1.1 % (0.0-10.0); HEMATOCRIT 25.3 % (37.0-47.0); HEMOGLOBIN 7.9 g/dL (12.0-16.0); IMM GRAN% 4.4 % (0.0-0.5); LYMPH# 0.84 X1000 (1.2-3.4); LYMPH% 18.3 % (20.5-51.1); MCH 35.9 PG (27-31); MCHC 31.2 g/dL (33-37); MONO# 0.24 X1000 (0.11-0.59); MONO% 5.2 % (1.7-9.3); MPV 10.4 FL (7.4-10.4); NEUT% 69.7 % (42.2-75.2); PLT 159 X1000 (130-400); RDW 16.3 % (11.5-14.5); WBC 4.59 X1000 (4.8-10.8)
[2019-01-19 05:45] LABS: AGAP 10; BUN 21 mg/dL (8-22); CHLORIDE 114 mmol/L (98-107); COSMO 310; CREATININE 0.9 mg/dL (0.5-0.9); ESTIMATED GFR > 60; GLUCOSE 120 mg/dL (70-104); POTASSIUM 3.6 mmol/L (3.5-5.1); SODIUM 154 mmol/L (136-145); TCO2 30 mmol/L (25-35)
[2019-01-19] MEDS ORDERED: MAGNESIUM SULFATE 2 GM/S.W.I. 2 GM/50 ML IVPB IV ONE (07:27)
[2019-01-19] MEDS: NICODERM PATCH TD SCH (08:43)
[2019-01-19] MEDS: POTASSIUM CHLORIDE 20 MEQ/SWI 20 MEQ/100 ML IVPB IV SCH ×2 (08:43→10:31)
[2019-01-19] MEDS: THIAMINE IM SCH (08:43)
[2019-01-19] MEDS: LEVAQUIN 750 MG/D5W 750 MG/150 ML IVPB IV SCH ×2 (08:46→12:07)
[2019-01-19] MEDS ORDERED: LASIX IV ONE (10:17)
[2019-01-19] MEDS: FOLIC ACID 1 MG in NS 50 ML IV SCH (10:29)
--- NOTE | 2019-01-19 10:50 | PROGRESS NOTE ---
DATE: 01/19/2019 She was doing okay on BiPAP overnight. Her lorazepam drip was off overnight. In the morning time, her ABG looked better. SUBJECTIVE: She is more awake today than she had been. She is following simple commands like squeezing hands. I discussed with her about her clinical condition. She follows simple commands like wiggling toes as well. OBJECTIVE: Currently, vital signs suggest temperature of 97.2 degrees, pulse of 79, respiratory rate 15, blood pressure 142/81, and saturating 96 to 97 percent on Venturi mask. The patient does not appear in any acute distress. She is currently breathing on BiPAP without any distress. Could not examine oral cavity. Air entry bilaterally equal. No wheeze, rhonchi, or crackles. Cardiovascular: S1, S2 normal. No murmur, rub, or gallop. Abdomen is obese, soft, and nontender. No lower extremity edema. She has urine catheter in place. Input and output suggests -5 L yesterday, and positive 400 mL today. LABORATORY: Labs suggestive of normal WBC count, macrocytic anemia, and normal platelet count. A pH of 7.4, pCO2 of 47 on 40% BiPAP. She continues to have hypernatremia and hyperchloremia. Her kidney function has become normal. Her calcium is 8. Her magnesium is 1.8, which I am repeating at the moment. Microbiology previously. Urine culture was positive. IMAGING: No imaging today. ASSESSMENT AND PLAN: 1. Acute hypoxic hypercarbic respiratory failure due to bilateral pulmonary edema in the setting of acute kidney injury leading to volume overload, bilateral pneumonia, and respiratory distress due to delirium tremens currently improving. Give patient a break from BiPAP, and start her on Ventimask. Depending on her clinical status, I might repeat ABG again. I will consider additional intravenous Lasix. 2. Acute encephalopathy in the setting of alcohol withdrawal with delirium tremens and septic shock. The patient is status post 48 hours of lorazepam drip. Continue p.r.n. lorazepam as needed for alcohol induced delirium tremens. Continue folic acid and thiamine. Continue patient's home quetiapine and doxepin for suspected mood disorder, which were her home medications. 3. Macrocytic anemia related to anemia of chronic disease and chronic alcohol use. No need of transfusion. Continue to monitor CBC. Her thrombocytopenia has resolved. 4. Other problems include septic shock secondary to UTI and predominantly right lower lobe pneumonia requiring norepinephrine until 01/16 currently stable. Continue intravenous ceftaroline and intravenous levofloxacin for Klebsiella pneumoniae UTI, and pneumonia as per ID recommendation. 5. Acute kidney injury in the setting of septic shock, hyponatremia, hyperchloremia in the setting of intravenous fluid resuscitation have improved. Follow up serial BMP and continue Morejon catheter. 6. Disposition: The patient's condition remains critical considering alcohol induced delirium tremens. I plan to monitor patient in critical care unit. I could not reach out to her yesterday. I will try and inform the patient's daughter about her clinical course. I will answer all of her questions. TIME SPENT: More than 30 minutes was spent in taking care of this patient. cc: Sotero Holly MD MTDD
--- NOTE | 2019-01-19 11:20 | PROGRESS NOTE ---
DATE: 01/19/2019 SUBJECTIVE: Ms. Hussein has not had significant neurologic change. OBJECTIVE: She is much more alert. She followed simple commands consistently. She raised fingers correctly to command. She has full lateral eye movements. Limb tone is symmetric. She spoke some words and speech is a little bit dysarthric and feeble, but can be understood. I do not find a definite language deficit on brief bedside testing. There is no meningismus. IMPRESSION: Global encephalopathy consistent with alcohol withdrawal and sedatives on board. I do not see evidence of any new neurologic problem. I do not have any new suggestion from neurologic standpoint. Thanks for asking us to see Ms. Hussein. cc: MD JENNY Andres III
[2019-01-19] MEDS: LIBRIUM PO SCH (12:07)
[2019-01-19] MEDS: MYCOSTATIN SUSP PO SCH ×2 (12:07→20:03)
[2019-01-19] MEDS: SINEQUAN PO SCH (12:08)
--- NOTE | 2019-01-19 12:31 | INFECTIOUS DISEASE PROGRESS NO ---
DATE: 01/19/2019 PRESENT ILLNESS: The patient has pneumonia, a Klebsiella urinary tract infection, and sphenoid, frontal and ethmoid sinusitis. MEDICATIONS: The patient has been on ceftaroline and Levaquin now for 7 days. PHYSICAL EXAMINATION: Vital Signs: Temperature is 97.8 degrees, pulse 81, respirations 20, blood pressure 137/71. General: This is an obese, sedated, middle-aged female. She is in no acute distress. She has an oxygen mask on but not a BiPAP mask on. HEENT: She can hear my spoken words and see near objects. She does have some white coating on her tongue that I think appears to be due to oral candidiasis. Neck: No pain with movement. Lungs: Clear to auscultation. Cardiovascular: Heart rate is regular. Abdomen: Soft and nontender. Neurologic: Patient is lethargic but she is better than she was yesterday. She does try to converse and she does follow requests to move her extremities. Integument: No rash noted. LAB AND X-RAY: CBC shows a white count of 4590, hemoglobin 7.9, and platelet count 159,000. Creatinine is 0.9. GFR is greater than 60. Arterial blood gases show a pH of 7.46, a PO2 of 99, and a pCO2 of 44. ASSESSMENT AND PLAN: Patient has pneumonia, urinary tract infection, sinusitis, and most recently oral candidiasis. My plan is to continue ceftaroline and Levaquin. The patient is lethargic enough that I will not be able to order Mycostatin swish and swallow, but I am going to order that Mycostatin be painted in the patient's mouth by the nurse q.i.d. COMORBIDITIES: The patient is a cigarette smoker and alcoholic. Currently part of her altered mental status now may be due to alcohol withdrawal. cc: Mayur Chairez MD
[2019-01-19] MEDS: PROTONIX IV SCH ×2 (14:23→16:21)
[2019-01-19] MEDS: ATIVAN IV PRN (20:03)
[2019-01-19] MEDS: SEROQUEL PO SCH (20:03)
[2019-01-20] MEDS: LIBRIUM PO SCH ×3 (01:07→16:47)
[2019-01-20] MEDS: DUONEB (A & A) INH SCH ×6 (03:22→23:07)
[2019-01-20] MEDS: TEFLARO 400 MG in NS 250 ML IV SCH ×3 (05:19→17:14)
[2019-01-20] MEDS: LOVENOX SUBQ SCH (05:19)
[2019-01-20 05:24] LABS: ALLEN TEST YES; BE 9.9 mmoll (-3.0-3.0); BLOOD TYPE ARTERIAL; HCO3-(ACT) 32.6 mmoll (20.0-26.0); METHB 0.4 % (0.0-1.5); O2(CT) 11.9 mL/dL (15.0-23.0); O2HB 94.7 % (95.0-99.0); PCO2(98.6) 39 mmHg (35-45); PO2(98.6) 70 mmHg (60-100); SAMPLE BLOOD; SAO2 97.6 % (95.0-100.0); THB 8.9 g/dL (11.5-17.4); pH(98.6) 7.54 (7.35-7.45)
[2019-01-20 05:25] LABS: MODALITY VENTIMASK
[2019-01-20 06:48] LABS: BASO# 0.03 X1000 (0.0-0.2); BASO% 0.5 % (0.0-0.8); EOS# 0.03 X1000 (0.0-0.7); EOS% 0.5 % (0.0-10.0); HEMATOCRIT 27.8 % (37.0-47.0); HEMOGLOBIN 8.6 g/dL (12.0-16.0); IMM GRAN# 0.11 X1000 (0.0-0.04); IMM GRAN% 1.8 % (0.0-0.5); LYMPH# 1.06 X1000 (1.2-3.4); LYMPH% 17.8 % (20.5-51.1); MCH 34.5 PG (27-31); MCHC 30.9 g/dL (33-37); MCV 111.6 FL (81-99); MONO# 0.28 X1000 (0.11-0.59); MONO% 4.7 % (1.7-9.3); MPV 10.5 FL (7.4-10.4); NEUT# 4.45 X1000 (1.4-6.5); NEUT% 74.7 % (42.2-75.2); PLT 187 X1000 (130-400); RBC 2.49 XMIL (4.2-5.4); RDW 16.1 % (11.5-14.5); WBC 5.96 X1000 (4.8-10.8)
[2019-01-20 07:20] LABS: CALCIUM 8.6 mg/dL (8.8-10.2); POTASSIUM 3.4 mmol/L (3.5-5.1)
[2019-01-20] MEDS ORDERED: MAGNESIUM SULFATE 2 GM/S.W.I. 2 GM/50 ML IVPB IV ONE (07:39)
[2019-01-20] MEDS: POTASSIUM CHLORIDE 20 MEQ/SWI 20 MEQ/100 ML IVPB IV SCH ×2 (08:36→10:51)
[2019-01-20] MEDS: MYCOSTATIN SUSP PO SCH ×5 (09:25→20:16)
[2019-01-20] MEDS: NICODERM PATCH TD SCH (09:25)
[2019-01-20] MEDS: SINEQUAN PO SCH (09:25)
[2019-01-20] MEDS: LEVAQUIN 750 MG/D5W 750 MG/150 ML IVPB IV SCH (09:26)
[2019-01-20] MEDS: THIAMINE IM SCH (10:25)
[2019-01-20] MEDS: FOLIC ACID 1 MG in NS 50 ML IV SCH (10:25)
--- NOTE | 2019-01-20 11:46 | PROGRESS NOTE ---
DATE: 01/20/2019 INTERVAL HISTORY: Ms. Hussein did not have any acute overnight events. In the morning time, she appears much more awake and alert. Denies any complaints. She does have some speech abnormality, which appears to be baseline. VITALS: Currently,, vitals detect temperature of 98 degrees, pulse of 112 per minute, respiratory rate 28 per minute, saturating 92% on 4 L nasal cannula. PHYSICAL EXAMINATION: General: She does not appear in any acute distress. Mouth: Oral cavity is moist. Lungs: Air entry bilaterally equal without any wheeze, rhonchi. Mild inspiratory crackles bilaterally. Heart: S1, S2 normal. Tachycardic. No murmur, rub, or gallop. Abdomen: Obese, soft, nontender. Extremities: No lower extremity edema. : She has urine catheter which I suggested to discontinue. Input and output in last 24 hours suggests she was -1.8 L yesterday. LABS: Suggestive of macrocytic anemia with hemoglobin of 8.6, platelet count of 187. A pH of 7.54 on 35% Ventimask with PO2 of 70. Her hypernatremia is improving. Hyperchloremia has resolved. Her potassium is 3.4, which is being repleted. She does have mildly elevated creatinine from yesterday. MICROBIOLOGY: No new microbiological data. IMAGING STUDIES: No new imaging. ASSESSMENT AND PLAN: 1. Acute hypoxic hypercarbic respiratory failure due to bilateral pulmonary edema in the setting of acute kidney injury leading to volume overload, bilateral pneumonia and respiratory distress because of delirium tremens, currently improving. Continue patient on nasal cannula and Ventimask as tolerated, and I will cycle BiPAP at nighttime as tolerated. Arterial blood gas currently suggest adequate oxygenation and no hypercarbia on Ventimask. 2. Acute encephalopathy in the setting of alcohol withdrawal with delirium tremens and septic shock. She is off lorazepam drip since 01/18/2019. Continue patient on as-needed lorazepam and chlordiazepoxide. Continue folic acid, thiamine, and restart patient's home quetiapine and doxepin. 3. Macrocytic anemia related to anemia of chronic disease and chronic alcohol use. No need of transfusion. Continue to monitor complete blood count and continue patient on folic acid. I will follow up with vitamin B 12 level tomorrow. 4. Other problems include septic shock secondary to urinary tract infection, and predominantly right lower lobe pneumonia requiring norepinephrine until January 16, currently stable. Continue intravenous ceftaroline and intravenous levofloxacin for Klebsiella pneumoniae urinary tract infection as per Infectious Disease recommendation. 5. Acute kidney injury in the setting of septic shock. Hypernatremia and hyperchloremia, currently improved. Follow up with serial basic metabolic panel and replete potassium. 6. Disposition: The patient's condition remains critical and she remains inside the intensive care unit. 7. History of cerebral aneurysmal bleed in 2017, status post residual speech abnormality, gait abnormality, aware. Continue deep vein thrombosis prophylaxis with enoxaparin. I talk and call patient's to obtain relevant history. I answered all of his questions. The patient's did not want me to provide disposition-related information to patient's daughter, but he was okay me conveying health information in terms of the patient's health status to the patient's daughter. cc: Sotero Holly MD
[2019-01-20] MEDS: PROTONIX IV SCH (15:48)
[2019-01-20] MEDS: SODIUM CHLORIDE 0.9% INJ SCH (15:48)
[2019-01-20] MEDS: D5W 1,000 ML IV SCH (16:43)
[2019-01-20] MEDS: SEROQUEL PO SCH (20:16)
[2019-01-20] MEDS: ATIVAN IV PRN (21:33)
[2019-01-21] MEDS: DUONEB (A & A) INH SCH ×6 (03:11→22:55)
[2019-01-21] MEDS: LIBRIUM PO SCH ×2 (05:29→16:33)
[2019-01-21] MEDS: LOVENOX SUBQ SCH (05:29)
[2019-01-21] MEDS: TEFLARO 400 MG in NS 250 ML IV SCH (05:33)
[2019-01-21] MEDS: D5W 1,000 ML IV SCH (05:33)
[2019-01-21 06:00] LABS: BASO# 0.03 X1000 (0.0-0.2); BASO% 0.5 % (0.0-0.8); EOS# 0.03 X1000 (0.0-0.7); EOS% 0.5 % (0.0-10.0); HEMATOCRIT 25.2 % (37.0-47.0); IMM GRAN# 0.07 X1000 (0.0-0.04); IMM GRAN% 1.2 % (0.0-0.5); LYMPH% 17.7 % (20.5-51.1); MCH 35.1 PG (27-31); MCHC 31.7 g/dL (33-37); MCV 110.5 FL (81-99); MONO# 0.21 X1000 (0.11-0.59); MONO% 3.7 % (1.7-9.3); MPV 10.3 FL (7.4-10.4); NEUT# 4.31 X1000 (1.4-6.5); NEUT% 76.4 % (42.2-75.2); PLT 167 X1000 (130-400); RBC 2.28 XMIL (4.2-5.4); RDW 16.4 % (11.5-14.5); WBC 5.65 X1000 (4.8-10.8)
[2019-01-21 06:29] LABS: AGAP 12; BUN 15 mg/dL (8-22); CALCIUM 7.9 mg/dL (8.8-10.2); CHLORIDE 103 mmol/L (98-107); COSMO 285; CREATININE 0.9 mg/dL (0.5-0.9); ESTIMATED GFR > 60; GLUCOSE 118 mg/dL (70-104); POTASSIUM 3.5 mmol/L (3.5-5.1); SODIUM 142 mmol/L (136-145); TCO2 27 mmol/L (25-35)
[2019-01-21] MEDS: MYCOSTATIN SUSP PO SCH ×5 (08:22→21:20)
[2019-01-21] MEDS: SINEQUAN PO SCH (08:23)
[2019-01-21] MEDS: NICODERM PATCH TD SCH (08:23)
--- NOTE | 2019-01-21 08:50 | Diag Imaging Result Doc PS360 ---
EXAM: CHEST-PORTABLE INDICATION: dyspnea, Follow up pulmonary edema TECHNIQUE: One view COMPARISON: 01/18/2019 FINDINGS: Right PICC line is in stable position. Inspiration is suboptimal. There has been continued improvement of pulmonary edema and pulmonary venous congestion since the previous study with essential resolution on the left. There is still a small right pleural effusion that is grossly unchanged. No new consolidation is identified. Cardiac silhouette is stable. IMPRESSION: Interval improvement of pulmonary edema. Electronically signed by Fortino Dickerson 01/21/2019 8:48 AM
[2019-01-21] MEDS: KLOR-CON PO SCH ×2 (10:34→13:27)
[2019-01-21] MEDS: VITAMIN B-1 PO SCH (10:35)
[2019-01-21] MEDS: LEVAQUIN 750 MG/D5W 750 MG/150 ML IVPB IV SCH (10:35)
--- NOTE | 2019-01-21 10:48 | PROGRESS NOTE ---
DATE: 01/21/2019 INTERVAL HISTORY: No acute events overnight. I had informed patient's daughter of her clinical course yesterday. SUBJECTIVE: The patient is arousable, does not appear in any acute distress. She answers simple questions. She is partly confused though. She does have baseline speech abnormalities. OBJECTIVE: Vitals: Currently temperature 98.9 degrees, pulse 101, respiratory rate 23, blood pressure 103/69, saturating 92% on 4 L nasal cannula. General: She does not appear in any acute distress. Mouth: Oral cavity is moist. Lungs: Air entry bilaterally equal without wheeze, rhonchi. Mild inspiratory crackles bilateral bases. Cardiac: S1, S2 normal. Tachycardic. No murmur, rub, or gallop. Abdomen: Obese, soft, nontender. Extremities: No lower extremity edema. She does have bilateral, especially left upper extremity edema. She had a urine catheter which was discontinued yesterday. INPUT AND OUTPUT: Suggests positive 3 L so far. LABORATORIES: Suggestive of stable microcytic anemia, normal platelet count, resolution of acute kidney injury. MICROBIOLOGY: No new data. IMAGING: Chest x-ray is suggestive of interval improvement of pulmonary edema. ASSESSMENT AND PLAN: 1. Acute hypoxic hypercarbic respiratory failure due to bilateral pulmonary edema in the setting of acute kidney injury leading to volume overload, bilateral pneumonia, delirium tremens, currently improving. Follow up Chest Xray. Continue oxygenation through nasal cannula and cycle BiPAP at nighttime. 2. Acute encephalopathy in the setting of alcohol withdrawal and delirium tremens with septic shock, currently improving, however, she still has some waxing and waning. Continue chlordiazepoxide and p.r.n. lorazepam. Continue folic acid, thiamine, and patient's home quetiapine and doxepin. 3. Microcytic anemia. Related to anemia of chronic disease and chronic alcohol use with suspected folate deficiency. Continue to monitor and supplement with folic acid. Vitamin B12 is within normal limits. 1. Other problems, including septic shock secondary to urinary tract infection and predominantly right lower lobe pneumonia requiring norepinephrine 01/16/2019; acute kidney injury in the setting of septic shock; hyponatremia and hyperchloremia have been resolved. DISPOSITION: I will advance the patient diet to full liquid diet. I will still monitor her inside the ICU since she has been requiring 4 L of nasal cannula and her mental status is still waxing and waning. I will discuss with Infectious Disease doctor about discontinuing her antibiotics since she has been on antibiotics for now 4 days. Plan of care discussed with the nursing team and the patient. All of the questions have been answered. cc: Sotero Holly MD MTDD
[2019-01-21] MEDS: FOLIC ACID 1 MG in NS 50 ML IV SCH (11:26)
[2019-01-21] MEDS: MIRALAX PO SCH (11:31)
[2019-01-21] MEDS: PROTONIX IV SCH (15:18)
[2019-01-21] MEDS: FOLIC ACID PO SCH (15:20)
--- NOTE | 2019-01-21 16:32 | INFECTIOUS DISEASE PROGRESS NO ---
DATE: 01/21/2019 I have evaluated the patient's lab studies and examined her. I agree with Dr. Holly that the patient's infections, namely pneumonia, urinary tract infection, and sinusitis have cleared and I agree with discontinuing her antibiotics. I am signing off the patient's case. I am available to see her on a p.r.n. basis. cc: Mayur Chairez MD
[2019-01-21] MEDS: SEROQUEL PO SCH (21:20)
[2019-01-22] MEDS: DUONEB (A & A) INH SCH ×6 (03:10→23:08)
[2019-01-22] MEDS: LIBRIUM PO SCH ×2 (04:54→16:47)
[2019-01-22] MEDS: LOVENOX SUBQ SCH (06:02)
--- NOTE | 2019-01-22 08:08 | EKG Report ---
Test Performed on : 01/20/2019 1:36:23 PM Test Reason : tachycardia Blood Pressure : / mmHG Vent. Rate : 097 BPM Atrial Rate : 097 BPM P-R Int : 148 ms QRS Dur : 090 ms QT Int : 416 ms P-R-T Axes : 038 073 085 degrees QTc Int : 528 ms Normal sinus rhythm. T wave abnormality, consider anterolateral ischemia Prolonged QT Abnormal ECG When compared with ECG of 12-JAN-2019 07:23, (Unconfirmed) T wave inversion now evident in Lateral leads Unconfirmed Result
[2019-01-22] MEDS: VITAMIN B-1 PO SCH (08:13)
[2019-01-22] MEDS: FOLIC ACID PO SCH (08:13)
[2019-01-22] MEDS: MIRALAX PO SCH (08:14)
[2019-01-22] MEDS: SINEQUAN PO SCH (08:14)
[2019-01-22] MEDS: NICODERM PATCH TD SCH (08:14)
[2019-01-22] MEDS: PROTONIX IV SCH ×2 (08:14→20:02)
[2019-01-22] MEDS: SODIUM CHLORIDE 0.9% INJ SCH ×2 (08:14→20:03)
[2019-01-22] MEDS: MYCOSTATIN SUSP PO SCH ×4 (08:15→20:03)
--- NOTE | 2019-01-22 10:08 | PROGRESS NOTE ---
DATE: 01/22/2019 INTERVAL HISTORY: No acute events. The patient has been tolerating a liquid diet. She has had multiple bowel movements. The fecal occult blood test is positive. Yesterday chest x-ray had suggested resolution of pulmonary edema. She has been started on pantoprazole IV q.12 hours. SUBJECTIVE: She is feeling fine, denying any complaints. She states that she has been eating okay. She is happy to hear that I am going to transfer her out of medical floor to [facility]. OBJECTIVE: Vitals: Temperature of 99 degrees, pulse of 95 per minute, respiratory rate 23, blood pressure 112/73, saturating 94% on 4 L nasal cannula. General: Does not appear in any acute distress. Mouth: Oral cavity is moist. Lungs: Air entry bilaterally equal without wheeze or rhonchi. Mild inspiratory crackles bilateral inframammary region. Cardiac: S1, S2 normal. Not tachycardic. No murmur, rub, or gallop. Abdomen: Obese, soft, nontender. Extremities: No lower extremity edema. Her upper extremity edema is significantly better. She has a urine catheter which was discontinued before. DIAGNOSTIC DATA: EKG has suggested normal sinus rhythm. She did have some anterolateral T-wave inversions which were present in December 2015 as well, though a little more marked at this time. INPUT AND OUTPUT: She had 3 liquid bowel movements. LABORATORIES: No CBC or BMP today. No signs of overt bleeding. ASSESSMENT AND PLAN: 1. Acute hypoxic hypercarbic respiratory failure due to bilateral pulmonary edema in the setting of acute kidney injury leading to volume overload, bilateral pneumonia, delirium tremens, currently improving. Chest x-ray suggests resolution of pulmonary edema, though she does have a small right-sided pleural effusion. Continue oxygenation through nasal cannula. 2. Acute encephalopathy in the setting of alcohol withdrawal and delirium tremens with septic shock, currently improving. Patient appears to be at baseline. Continue chlordiazepoxide and p.r.n. lorazepam. Continue folic acid, thiamine and patient's home quetiapine and doxepin for history of anxiety. 3. Macrocytic anemia and acute blood loss anemia with anemia related to chronic disease and chronic alcohol consumption. Continue supplementation with folic acid and start patient on intravenous Protonix b.i.d. She does not have overt bleed. She should get outpatient EGD and colonoscopy. 4. Other problems, including septic shock secondary to UTI and right lower lobe pneumonia requiring norepinephrine until 01/16/2019, resolved. She is off antibiotics now. Her acute kidney injury in the setting of septic shock, hyponatremia, hyperchloremia have also resolved. 5. Disposition. I will transfer patient to [facility]. I will place social work rehab consult and would anticipate discharge in next 48 hours or so. Plan of care was discussed with the patient. I would also reach out to patient's and inform him about her care. cc: Sotero Holly MD
[2019-01-22] MEDS: SEROQUEL PO SCH (20:03)
[2019-01-22] MEDS: ATIVAN IV PRN (23:26)
[2019-01-23] MEDS: DUONEB (A & A) INH SCH ×6 (03:14→22:48)
[2019-01-23 05:42] LABS: BASO# 0.03 X1000 (0.0-0.2); BASO% 0.5 % (0.0-0.8); EOS# 0.04 X1000 (0.0-0.7); EOS% 0.7 % (0.0-10.0); HEMATOCRIT 25.7 % (37.0-47.0); HEMOGLOBIN 8.2 g/dL (12.0-16.0); IMM GRAN# 0.07 X1000 (0.0-0.04); IMM GRAN% 1.3 % (0.0-0.5); LYMPH# 1.12 X1000 (1.2-3.4); MCH 35.2 PG (27-31); MCHC 31.9 g/dL (33-37); MCV 110.3 FL (81-99); MONO# 0.31 X1000 (0.11-0.59); MONO% 5.5 % (1.7-9.3); MPV 10.6 FL (7.4-10.4); NEUT# 4.03 X1000 (1.4-6.5); PLT 170 X1000 (130-400); RBC 2.33 XMIL (4.2-5.4); RDW 15.9 % (11.5-14.5)
[2019-01-23 05:51] LABS: MAGNESIUM 1.4 mg/dL (1.5-2.7); PHOSPHORUS 4.5 mg/dL (2.7-4.5); POTASSIUM 3.7 mmol/L (3.5-5.1)
[2019-01-23] MEDS: LOVENOX SUBQ SCH (06:06)
[2019-01-23] MEDS: LIBRIUM PO SCH ×2 (06:06→17:15)
[2019-01-23] MEDS: KLOR-CON PO SCH ×2 (08:29→11:41)
[2019-01-23] MEDS: MAGNESIUM SULFATE 2 GM/S.W.I. 2 GM/50 ML IVPB IV SCH ×2 (08:32→11:41)
[2019-01-23] MEDS: PROTONIX IV SCH ×2 (08:32→20:59)
[2019-01-23] MEDS: SINEQUAN PO SCH (08:33)
[2019-01-23] MEDS: MIRALAX PO SCH (08:33)
[2019-01-23] MEDS: NICODERM PATCH TD SCH (08:33)
[2019-01-23] MEDS: FOLIC ACID PO SCH (08:33)
[2019-01-23] MEDS: MYCOSTATIN SUSP PO SCH ×4 (08:33→20:58)
[2019-01-23] MEDS: SODIUM CHLORIDE 0.9% INJ SCH ×2 (08:33→20:58)
[2019-01-23] MEDS: VITAMIN B-1 PO SCH (08:33)
[2019-01-23] MEDS: MAG-OX PO SCH ×2 (08:34→20:57)
[2019-01-23] MEDS ORDERED: LASIX IV ONE (08:37)
--- NOTE | 2019-01-23 12:35 | PROGRESS NOTE ---
DATE: 01/23/2019 INTERVAL HISTORY: She was transferred from ICU to [facility] yesterday. She did not have any other acute overnight events. SUBJECTIVE: She is feeling fine denying any complaints. She is feeling a little short of breath. I advised her to take a deep enough breath. I also advised her to talk with the nursing team about giving her a dose of Lasix. Currently, she is denying any nausea, vomiting, or abdominal pain. She has been eating liquid diet. She wants to eat something more. I discussed with her about speech evaluation. VITALS: Temperature 98.1 degrees, pulse 100, respiratory rate 20, blood pressure 100/74, saturating 95% on room air not in any acute distress. PHYSICAL EXAMINATION: General: Does not appear in any acute distress except mild shortness of breath. HEENT: Oral cavity is moist. Lungs: Air entry bilaterally equal in suprascapular region without wheeze, rhonchi, or crackles. Decreased air entry with inspiratory crackles on left infrascapular region. Heart: S1, S2 normal. Not tachycardic. No murmur, rub, or gallop. Abdomen: Obese, soft, and nontender. Extremities: No lower extremity edema. LABORATORY: Labs suggestive of macrocytic anemia. Normal WBC count. Normal electrolytes, and what appears to be baseline kidney function. Hypomagnesemia which is being repleted. Microbiology. Fecal occult blood test has been positive, but her blood count has remained fairly stable and she has not required any transfusion. ASSESSMENT AND PLAN: 1. Acute hypoxic hypercarbic respiratory failure due to bilateral pulmonary edema in the setting of acute kidney injury leading to volume overload, bilateral pneumonia, delirium tremens currently improving. She is breathing well on room air. I will give her a dose of Lasix considering her mild shortness of breath. 2. Acute encephalopathy in the setting of alcohol withdrawal and delirium tremens with septic shock, currently improving. The patient appears to be at baseline. 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 Continue chlordiazepoxide taper. I will only give her at nighttime. Continue home quetiapine and doxepin for history of anxiety. 3. Macrocytic anemia and acute blood loss anemia with anemia related to chronic disease and chronic alcohol consumption. Her gastrointestinal bleed could be related to alcoholic gastritis or peptic ulcer disease. However, she is hemodynamically stable and blood count is stable. Continue folic acid, intravenous Protonix, iron and multivitamin. She should get outpatient EGD colonoscopy. 4. Septic shock secondary to UTI, septic shock secondary to right lower lobe pneumonia requiring norepinephrine until 01/16 is resolved. She is off antibiotics since 01/22/2019. Her acute kidney injury due to septic shock, hypernatremia, and hyperchloremia have also been resolved. 5. Disposition: I will transfer patient out of [facility] to routine medical floor. Social Work on board to find a rehab place. I will update the patient's . Plan of care discussed with the patient. All of her questions have been answered. Plan is to discharge her to rehab facility in the next 24 hours or so whenever a bed becomes available. Addendum: I left a voice message for the . Her daughter did not have a voice mail box set up when I called. cc: Sotero Holly MD MTDD
[2019-01-23] MEDS: ICAR-C PLUS PO SCH (13:16)
[2019-01-23] MEDS: ATIVAN IV PRN ×2 (20:58→22:58)
[2019-01-23] MEDS: SEROQUEL PO SCH (20:58)
[2019-01-24] MEDS: DUONEB (A & A) INH SCH ×4 (03:06→16:13)
[2019-01-24] MEDS: LOVENOX SUBQ SCH (06:20)
[2019-01-24] MEDS: LIBRIUM PO SCH (06:20)
[2019-01-24] MEDS: MYCOSTATIN SUSP PO SCH ×2 (08:36→14:09)
[2019-01-24] MEDS: VITAMIN B-1 PO SCH (08:36)
[2019-01-24] MEDS: MAG-OX PO SCH (08:36)
[2019-01-24] MEDS: FOLIC ACID PO SCH (08:36)
[2019-01-24] MEDS: SINEQUAN PO SCH (08:36)
[2019-01-24] MEDS: MIRALAX PO SCH (08:36)
[2019-01-24] MEDS: PROTONIX IV SCH (08:36)
[2019-01-24] MEDS: ICAR-C PLUS PO SCH (08:36)
[2019-01-24] MEDS: SODIUM CHLORIDE 0.9% INJ SCH (08:36)
[2019-01-24] MEDS: NICODERM PATCH TD SCH (08:36)
--- NOTE | 2019-01-24 11:05 | PROGRESS NOTE ---
DATE: 01/24/2019 SUBJECTIVE: Ms. Hussein has continued slowly improving with her global encephalopathy attributed to ethanol withdrawal. OBJECTIVE: This morning, she appears to be sleeping peacefully and as I called her name, she was awake and alert. She was briefly attentive. She answered some simple questions. She is a little bit tremulous but did well on [id number] testing bilaterally. She has good power symmetrically in the arms. Facial motility is symmetric. Head and neck are unremarkable. There is no meningismus. IMPRESSION: Global encephalopathy, improving course in recent days. PLAN: Nothing to add to current management. Thanks for asking neurology to see Ms. Hussein. cc: MD JENNY Andres III
--- NOTE | 2019-01-24 13:12 | PROGRESS NOTE ---
DATE: 01/24/2019 INTERVAL HISTORY: No acute events. SUBJECTIVE: Patient is sleepy. Denies any complaints. We discussed about going to rehabilitation, and she is in agreement. I was not able to reach out to patient's yesterday. I will try and call him again today. VITALS: Currently temperature 97.6 degrees, pulse 90, respiratory rate 14, blood pressure 100/62, saturating 93% on 2 L nasal cannula. PHYSICAL EXAMINATION: Morbidly obese. Not in any acute distress. Oral cavity is moist. Air entry bilaterally equal. Mild inspiratory crackles at bilateral bases., No wheeze or rhonchi. S1, S2 normal. Not tachycardic. No murmur, rub, or gallop. Abdomen is obese, soft, nontender. No lower extremity edema. Neurologic: She is alert, answers simple questions. She does have baseline speech abnormality. She tracks to both sides of midline. She is able to lift both upper and lower extremity bilaterally above ground level. However, she does have residual weakness of the right side as compared to the left from previous aneurysmal bleed. DIAGNOSTIC STUDIES: No labs today. ASSESSMENT: 1. Acute hypoxic hypercarbic respiratory failure due to pulmonary edema. 2. Acute kidney injury. 3. Acute encephalopathy. 4. Alcohol withdrawal and delirium tremens. 5. Microcytic anemia and acute blood loss anemia with anemia of chronic disease. 6. Chronic alcohol consumption. 7. Septic shock secondary to urinary tract infection (UTI). 8. Klebsiella pneumoniae urinary tract infection (UTI). 9. Right lower lobe pneumonia. PLAN: The patient has completed course for her antibiotics. Alcohol withdrawal is in remission. Plan will be to discharge her to rehabilitation on a chlordiazepoxide taper. I will try and reach out to patient's again today and inform him about her course. Plan of care was discussed with the patient. The patient will be discharged to rehabilitation. cc: Sotero Holly MD
[2019-01-24 15:30] VITALS: BP 97/63
--- NOTE | 2019-01-24 16:26 | DISCHARGE SUMMARY ---
ADMISSION DATE: 01/12/2019 DISCHARGE DATE: 01/24/2019 ADMISSION DIAGNOSES: 1. Septic shock. 2. Right lower lobe pneumonia. 3. Hypotension. 4. Acute respiratory failure. DISCHARGE DIAGNOSES: 1. Acute hypoxemic hypercarbic respiratory failure due to pulmonary edema. 2. Acute kidney injury. 3. Acute encephalopathy. 4. Alcohol withdrawal and delirium tremens. 5. Microcytic anemia and acute blood loss anemia with anemia of chronic disease. 6. Chronic alcohol consumption. 7. Septic shock secondary to urinary tract infection. 8. Klebsiella pneumoniae urinary tract infection. 9. Right lower lobe pneumonia. CONSULTATIONS: 1. Dr. Mayur Chairez. 2. Dr. Lamonte Garcia. 3. PICC line placement. 4. Social Work for rehab placement and for alcohol abuse. PROCEDURES OR SURGERIES: None other than PICC line placement which was placed on 01/17/2019. HOSPITAL COURSE: On 01/12/2019 Ms. Leonarda Hussein, a 53-year-old female, presented to [facility]. She had complaints of shortness of breath, confusion, and decreased appetite. Apparently she had not been eating for 3 days and was vomiting and had generalized weakness. She had hypoxemic respiratory failure with an O2 saturation of 87%. She was hypotensive with blood pressure in the 70s to 80s. She was treated per sepsis protocol. Although her white count was 4,000 she had a serum lactate of 7.6. She showed a right lower lobe pneumonia on her chest x-ray and urinary tract infection eventually grew out Klebsiella pneumoniae. She was admitted to the ICU for further evaluation and treatment. Due to the acute encephalopathy and the alcohol withdrawal that she developed while she was here, she had a head CT that was performed on 01/15/2019 which only showed sinusitis, some mild atrophy, and chronic microvascular changes but no hemorrhage. Neurology was consulted on 01/17/2019 who saw her with an impression of global encephalopathy being multifactorial due to medication, metabolic findings, and alcohol withdrawal and had no urgent suggestions at that time. She did have some acute kidney injury while she was here and Dr. Dozier was consulted. There were no acute findings on the renal ultrasound. The creatinine initially was 8 on admission. It eventually resolved around 01/19/2019. So, between 01/12/2019 and 01/19/2019 she eventually went down to 0.9. Dr. Dozier saw her on 01/13/2019 and felt like the acute kidney injury was prerenal and secondary to hypotension and decreased intravascular volume. She did receive a significant amount of IV fluid resuscitation, especially secondary to the sepsis and the septic shock that she was in. 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 Eventually Nephrology signed off around 01/17/2019 due to the resolution of her acute kidney injury. Dr. Chairez was also consulted due to the Klebsiella pneumoniae urinary tract infection and the right lower lobe pneumonia. He saw her on the day of admission, 01/12/2019. He discontinued Zyvox and Zosyn and treated the patient with ceftaroline and Levaquin. By 01/21/2019 it appeared that her pneumonia, urinary tract infection, and sinusitis had all cleared up and he agreed with Dr. Holly to discontinue antibiotics and he also signed off of her case on 01/21/2019. He said that he would be available p.r.n. It is noted that she did have a history of a cerebral aneurysm bleed in the past and had residual weakness on the right side with speech and cognition abnormalities and this was back in 2017. While she was here she also had chronic alcohol withdrawals and delirium tremens which she fully recovered from and was going to be placed on a chlordiazepoxide taper for that and she was deemed appropriate for discharge to rehabilitation. DISCHARGE VITAL SIGNS: Temperature 97.6, heart rate 90, blood pressure 102/62, and O2 saturation 93% on 2 L nasal cannula. DISCHARGE LAB DATA: None from today but yesterday on 01/23/2019 white blood cell count was 5,000, hemoglobin 8, hematocrit 25, and platelet count 170. Sodium 142, potassium 3.7, BUN 10, creatinine 1, glucose 101, and magnesium 1.4. PERTINENT IMAGING: On 01/12/2019 she had a chest x-ray which showed right lower lobe pneumonia. Renal ultrasound: No acute indication of obstructive uropathy. Abdominal ultrasound: Hepatic steatosis but no acute disease. On 01/14/2019 she had a repeat chest x-ray which showed slight improvement of the right lower lobe pneumonia. On 01/15/[address] which showed no hemorrhage, mild atrophy with mild chronic microvascular ischemic changes, and sinusitis. On 01/17/2019 another repeat chest x-ray showed pulmonary edema superimposed on pneumonia in the right lower lobe. Another x-ray on 01/18/2019 showed significant improvement in the extensive bilateral infiltrates. On 01/18/2019 she had a PICC line that was in the correct position and had interval improvement in pulmonary edema. DISCHARGE MEDICATIONS: 1. Quetiapine fumarate 50 mg p.o. nightly. 2. Doxepin HCL 50 mg p.o. daily. 3. Folic acid 1 mg p.o. daily. 4. Furosemide 20 mg p.o. daily. 5. MiraLAX 17 g p.o. daily. 6. Librium taper. 7. DuoNebs every 4 hours. 8. Icar-C one tab p.o. daily. 9. Nicotine patch transdermal daily. 10.Prilosec 40 mg p.o. twice daily. 11.Tylenol 650 mg every 4 hours p.r.n. 12.Vitamin B1 or thiamine 100 mg p.o. daily. DISCHARGE DIET: GI soft. DISCHARGE ACTIVITY: As tolerated. Take care to prevent falls. DISCHARGE FOLLOW UPS: Dr. Plummer, Dr. Tolbert, and Dr. Garcia. DISCHARGE INSTRUCTIONS: You were admitted for a urine infection, pneumonia, and alcohol withdrawal. You were treated with antibiotics and medications for withdrawal and you got better. Please complete the course of medications as prescribed. Stop drinking alcohol. You had blood in your stool. Please follow up with a stomach doctor and discuss about the need for an upper and lower endoscopy, EGD and colonoscopy. Continuing taking antacids until then. Get a repeat blood count in 5 days after discharge. Follow up with the neurologist. [facility] Dictated by JEFFREY Boswell for Sotero Holly MD cc: JEFFREY Boswell MD I agree with above mentioned discharge summary. A separate addendum has been dictated. >30 minutes were spent in discharging this patient. [facility]
[2019-01-24] MEDS ORDERED: PRILOSEC PO SCH (21:00)
[2019-01-24] MEDS ORDERED: LIBRIUM PO SCH (21:00)
== END 2019-01-24 19:36 | DRG 871 ==
LOC: P.ED 07:06 → P.EDIPHOLD 10:07 → SUATTDRO 10:07 → 3S 01-22 13:59 → 3N 01-23 14:12
PROVIDERS: ATTEND Internal Medicine
CPT/HCPCS: 36569; 51702; 70450; 71010; 71045; 76705; 76770; 80048; 80053; 80069; 81001; 82140; 82270; 82330; 82550; 82553; 82570; 82607; 82728; 82746; 82805; 83540; 83550; 83605; 83735; 84100; 84156; 84300; 84439; 84443; 84484; 84540; 85025; 85027; 85610; 85730; 87040; 87077; 87088; 87186; 92610; 93005; 93010; 94640; 94660; 94761; 94762; 94799; 96365; 96366; 96368; 97110; 97162; 97530; 99285; A9270; C9113; J0712; J1650; J1940; J1956; J2020; J2060; J2543; J3411; J3475; J3480; J7030; J7050; J7070; S0164

== ENCOUNTER 2019-12-28 12:48 | Inpatient (IN) ==
[2019-12-28] MEDS ORDERED: NS 1,000 ML IV ONE ×2 (13:03→14:28)
[2019-12-28] MEDS ORDERED: DUONEB (A & A) INH ONE (13:09)
[2019-12-28] MEDS ORDERED: ZOSYN 3.375 GM in NS 50 ML IV ONE (13:13)
[2019-12-28 13:34] LABS: BLOOD TYPE ARTERIAL; HCO3-(ACT) 22.3 mmoll (20.0-26.0); METHB 0.7 % (0.0-1.5); O2(CT) 14.3 mL/dL (15.0-23.0); PCO2(98.6) 42 mmHg (35-45); PO2(98.6) 61 mmHg (60-100); SAMPLE BLOOD; SAO2 92.1 % (95.0-100.0); THB 11.9 g/dL (11.5-17.4); pH(98.6) 7.34 (7.35-7.45)
[2019-12-28 13:39] LABS: ALLEN TEST YES; MODALITY ROOM AIR; O2HB 85.3 % (95.0-99.0)
[2019-12-28 14:16] LABS: INR 0.97; PROTIME 13.4 Seconds (11.0-16.0); PTT 28.3 Seconds (22.3-41.8)
[2019-12-28 14:18] LABS: BASO# 0.02 X1000 (0.0-0.2); BASO% 0.5 % (0.0-0.8); EOS# 0.06 X1000 (0.0-0.7); EOS% 1.5 % (0.0-10.0); HEMOGLOBIN 11.8 g/dL (12.0-16.0); IMM GRAN# 0.01 X1000 (0.0-0.04); IMM GRAN% 0.3 % (0.0-0.5); LYMPH# 1.83 X1000 (1.2-3.4); LYMPH% 46.2 % (20.5-51.1); MCH 42.6 PG (27-31); MCHC 33.7 g/dL (33-37); MCV 126.4 FL (81-99); MONO# 0.31 X1000 (0.11-0.59); MONO% 7.8 % (1.7-9.3); MPV 9.9 FL (7.4-10.4); NEUT# 1.73 X1000 (1.4-6.5); NEUT% 43.7 % (42.2-75.2); PLT 178 X1000 (130-400); RBC 2.77 XMIL (4.2-5.4); RDW 12.7 % (11.5-14.5); WBC 3.96 X1000 (4.8-10.8)
[2019-12-28 14:35] LABS: ANISOCYTOSIS 1+; EOS 2 % (1-10); LYMPHS 46 % (21-51); MONO 2 % (1-9); SEGS 50 % (42-75)
[2019-12-28 14:36] LABS: LARGE PLATELETS OCCASIONAL
--- NOTE | 2019-12-28 14:42 | Diag Imaging Result Doc PS360 ---
EXAM : CT HEAD/C-SPINE W/O CONTRAST HISTORY: fall TECHNIQUE: 1. CT head without contrast 2. CT cervical spine without contrast COMPARISON: Head compared to 02/08/2019 FINDINGS: Head: No parenchymal hemorrhage. No epidural or subdural hematoma. No subarachnoid hemorrhage. There is mild atrophy. No mass identified on this noncontrasted exam. No hydrocephalus. No skull fracture. Cervical spine: There is mild scoliosis and reversal of the normal curvature. No subluxation. Small degenerative bone spurs inferiorly. No subluxation. No fracture. IMPRESSION: Head: No hemorrhage. No injury. Cervical spine: No acute fracture. This exam was performed using automated exposure control, adjustment of mA or kV according to patient size, and/or use of iterative reconstruction technique. Electronically signed by Gabino Adams 12/28/2019 2:40 PM
--- NOTE | 2019-12-28 14:45 | Diag Imaging Result Doc PS360 ---
EXAM: CT MAXILLOFACIAL(SINUS) W/O CO HISTORY: fall TECHNIQUE: CT face without contrast COMPARISON: None. FINDINGS: There is mucosal thickening in the left sphenoid and maxillary sinuses. No sinus opacification and no air-fluid levels. Likely old injury to the right side of the nasal bone. No acute fracture or dislocation. IMPRESSION: No acute bony injury Electronically signed by Gabino Adams 12/28/2019 2:43 PM
--- NOTE | 2019-12-28 14:56 | Diag Imaging Result Doc PS360 ---
EXAM: CHEST-1 VIEW HISTORY: NEWS score TECHNIQUE: Single view COMPARISON: 02/14/2019 FINDINGS: The lungs are well expanded. The heart is not enlarged. The vessels are not distended. There are no infiltrates. No effusion identified. And old rib fractures. IMPRESSION: Negative exam. Electronically signed by Gabino Adams 12/28/2019 2:54 PM
[2019-12-28 14:59] LABS: AGAP 22; ALBUMIN 3.6 g/dL (3.5-5.0); ALKALINE PHOSPHATASE 113 U/L (32-104); BUN 10 mg/dL (8-22); CALCIUM 8.5 mg/dL (8.8-10.2); CHLORIDE 104 mmol/L (98-107); CK PROFILE 40 U/L (24-173); COSMO 290; CREATININE 0.6 mg/dL (0.5-0.9); ESTIMATED GFR > 60; GLUCOSE 103 mg/dL (70-104); GOT 149 U/L (10-30); GPT 69 U/L (10-36); MAGNESIUM 1.7 mg/dL (1.5-2.7); POTASSIUM 3.9 mmol/L (3.5-5.1); SODIUM 146 mmol/L (136-145); TCO2 20 mmol/L (25-35); TOTAL PROTEIN 6.3 g/dL (6.3-8.3)
[2019-12-28] MEDS ORDERED: SOLU-MEDROL IV ONE (15:10)
--- NOTE | 2019-12-28 15:12 | PROVIDER DOCUMENTATION ---
This chart was entered by Amanda Wong Scribe, acting as scribe for Radha Godoy CRNP. HPI-General Adult - General Chief Complaint: Fall Stated Complaint: FALL/HEAD INJURY Time Seen by Provider: 12/28/19 12:57 Source: patient Allergies/Adverse Reactions: Patient Allergies Allergy/AdvReac Type Severity Reaction Status Date / Time No Known Allergies Allergy Verified 12/28/19 13:24 Home Medications: Home Medication List Medication Instructions Recorded Confirmed Last Taken Type Doxepin HCl 50 mg PO DAILY 01/13/19 12/28/19 01/11/19 History Quetiapine Fumarate 50 mg PO QHS 01/13/19 12/28/19 01/09/19 History Omeprazole [Prilosec] 40 mg PO BID@0700,2100 cap 01/24/19 12/28/19 Unknown Rx Atenolol 50 mg PO BID 12/28/19 12/28/19 Unknown History Citalopram Hydrobromide 20 mg PO DAILY 12/28/19 12/28/19 Unknown History [Citalopram HBr] Hydrocodone/Acetaminophen 1 tab PO BID PRN PRN 12/28/19 12/28/19 Unknown History [Hydrocodone-Acetamin 7.5-325] Pregabalin 100 mg PO BID 12/28/19 12/28/19 Unknown History - History of Present Illness -Gen Adult Nature of Presenting Problems: 54yof presents to ED cc hematoma to back of head after 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 Pt is hypoxic, hypotensive, pale and altered with being A/O to person, place and family upon exam. Location of Pain/Injury: reports: head (occipital) Quality of Pain: reports: aching Severity: reports: moderate Onset/Duration: reports: just prior to arrival Timing: reports: still present Similar Symptoms Previously?: Yes Recently seen or treated by another doctor?: No Review of Systems - Adult - REVIEW OF SYSTEMS - ADULT Constitutional: reports: see HPI, other (intoxicated). denies: chills, fever, fatique Eyes: reports: no symptoms reported Ears, Nose, Mouth & Throat: reports: no symptoms reported Cardiovascular: reports: no symptoms reported Respiratory: reports: no symptoms reported Gastrointestinal: reports: no symptoms reported Genitourinary: reports: no symptoms reported Musculoskeletal: reports: no symptoms reported Integumentary: reports: see HPI, other (hematoma to back of head from fall) Neurological: reports: no symptoms reported Psychiatric: reports: no symptoms reported Endocrine: reports: no symptoms reported Hematologic/Lymphatic: reports: no symptoms reported Allergic/Immunologic: reports: no symptoms reported All Other Systems: Reviewed and Negative Past History - Adult - PAST MEDICAL HISTORY-ADULT Review of Records: reports: Old Records Reviewed, Nursing Assessment Review, Medications Reviewed, Social history reviewed & non-contributory. Major Childhood Illnesses: reports: denies history Cardiovascular: reports: HTN Respiratory: reports: denies history Gastrointestinal: reports: liver disease Obstetrical/Gynecological: reports: denies history Genitourinary: reports: denies history Musculoskeletal: reports: denies history Neurological: reports: CVA Endocrine/Immune: reports: denies history Other Conditions: reports: denies history - PRIOR SURGERIES/PROCEDURES Surgical/Procedure History: reports: BTL, orthopedic (extremity) (L knee) - IMMUNIZATION STATUS Childhood Immunizations: See Nurse Assessment Flu Vaccine: See Nurse Assessment - FAMILY HISTORY Family History: reviewed, not pertinent - SOCIAL HISTORY Smoking: greater than 1 pack/day Provider spent 3-5 mins advising pt. on dangers of tobacco.: Discussed manners to quit use, and f/u contacts for add'l counseling. Physical Exam-General - PHYSICAL EXAM-ADULT Initial Vital Signs Reviewed: Yes - CONSTITUTIONAL General Appearance: alert (to person, place and family). negative: combative - EYES Eyes: PERRL/EOMI, pink conjunctivae. negative: photophobia - HEAD, EARS, NOSE, MOUTH & THROAT HENMT: normocephalic/atraumatic, moist mucous membranes, other (hematoma to occipital, no swelling or bleeding) - RESPIRATORY Respiratory: chest non-tender, crackles (coarse,bilateral), other (hypoxic) - CARDIOVASCULAR Cardiovascular: normal peripheral pulses, regular rate, rhythm, other (hypotensive). negative: bradycardia, tachycardia - GASTROINTESTINAL (ABDOMEN) Abdominal Exam: normal bowel sounds, non tender, soft. negative: rebound - MUSCULOSKELETAL Extremity: normal inspection, normal capillary refill. negative: deformity - SKIN Integumentary: normal turgor. negative: normal color (pale), diaphoresis, jaundice, swelling - NEUROLOGIC Neurologic: other (altered) Progress - PLAN OF CARE/RESULTS Progress/Plan/Lab Results: Vital Signs - 8 hr 12/28/19 12:56 Temperature 98.1 F Pulse Rate 93 H Respiratory Rate 16 Blood Pressure 87/49 O2 Sat by Pulse Oximetry 89 L Orders Category Date Time Status Cardiac Monitoring NOW Care 12/28/19 13:02 Active IV Insertion NOW Care 12/28/19 13:02 Active NEWS Score >or=5:Order NEWS Bundle S.O. NOW Care 12/28/19 13:01 Active Notify Provider of NEWS Score NOW Care 12/28/19 13:02 Active CHEST-1 VIEW [RAD] Stat Exams 12/28/19 13:[address] HEAD/C-SPINE W/O CONTRAST [CT] Stat Exams 12/28/19 13:[address] MAXILLOFACIAL(SINUS) W/O CO [CT] Stat Exams 12/28/19 13:12 Ordered ABG [RESP] Routine Lab 12/28/19 13:09 Ordered ALCOHOL BLOOD Stat Lab 12/28/19 13:12 Uncollected AMMONIA [CHEM] Stat Lab 12/28/19 13:07 Uncollected BLOOD CULTURE [BLDCUL] Stat Lab 12/28/19 13:02 Uncollected CBC WITH DIFF [HEME] Stat Lab 12/28/19 13:02 Uncollected CK PROFILE [SP CHEM] Stat Lab 12/28/19 13:02 Uncollected COMPREHENSIVE METABOLIC PANEL [CHEM] Stat Lab 12/28/19 13:02 Uncollected LACTATE, PLASMA [CHEM] Lab 12/28/19 13:15 Uncollected LACTATE, PLASMA [CHEM] Lab 12/28/19 16:15 Uncollected LACTATE, PLASMA [CHEM] Lab 12/28/19 19:15 Uncollected MAGNESIUM [CHEM] Stat Lab 12/28/19 13:09 Uncollected PROTIME WITH INR [COAG] Stat Lab 12/28/19 13:02 Uncollected PTT [COAG] Stat Lab 12/28/19 13:02 Uncollected TROPONIN T HIGH SENSITIVITY Stat Lab 12/28/19 13:02 Uncollected URINALYSIS W/POSS RFLX CULT [URINALYSIS] Stat Lab 12/28/19 13:02 Uncollected 0.9% Sodium Chloride Inj [Ns] 1,000 ml Med 12/28/19 13:03 Active IV 999 mls/hr Albuterol 2.5MG/Ipratrop 0.5MG [Duoneb (A & A)] Med 12/28/19 13:09 Discontinued 3 ml INH NOW ONE Piperacillin/Tazobactam [Zosyn] 3.375 gm Med 12/28/19 13:13 Active 0.9% Sodium Chloride Inj [Ns] 50 ml IV NOW Aerosol Treatments Routine Oth 12/28/19 13:09 Active Aerosol Treatments Stat Oth 12/28/19 13:09 Active O2 Per Protocol Stat Ot 12/28/19 13:02 Active Result Diagrams: 12/28/19 13:38 12/28/19 13:38 - XRAY 1 XRAY: Bilateral XRAY Study: Chest Impression: See EMR Report ( FINDINGS: The lungs are well expanded. The heart is not enlarged. The vessels are not distended. There are no infiltrates. No effusion identified. And old rib fractures. IMPRESSION: Negative exam. Electronically signed by Gabinocarmina Adams 12/28/2019 2:54 PM) - CT/MRI 1 CT Study: Facial Bones Impression: See EMR Report ( FINDINGS: There is mucosal thickening in the left sphenoid and maxillary sinuses. No sinus opacification and no air-fluid levels. Likely old injury to the right side of the nasal bone. No acute fracture or dis location. IMPRESSION: No acute bony injury Electronically signed by Gabino [facility] 12/28/2019 2:43 PM 12/28/19 1443) 2 CT Study: Head Impression: See EMR Report (IMPRESSION: Head: No hemorrhage. No injury. Cervical spine: No acute fracture. This exam was performed using automated exposure control, adjustment of mA or kV according to patient size, and/or use of iterative reconstruction technique. Electronically signed by Gabino Gerton 12/28/2019 2:40 PM) - CONSULTS/PCP/HOSPITALIST Notification #1 *Consult/PCP/Hospitalist*: Dr. Estrada Time Discussed: 15:11 Consult Disposition: Admit Departure - Departure Date of Disposition Decision: 12/28/19 ( ) Time of Disposition Decision: 15:11 DIAGNOSIS: Hypoxia, AMS (altered mental status), ETOH abuse, Lactic acidosis, COPD exacerbation, Tobacco abuse Disposition: ADMITTED INPATIENT 09 Certified Medical Emergency: Emergent Condition: Fair Referrals and Follow-Ups: None,PCP [Primary Care Provider] - Discharge Education: Steps to Quit Smoking, [id number] - Critical Care Note This patient required my direct & personal management of CC.: No Attestation - Physician/ BASHIR Attestation Patient care was provided by Advanced Practice Provider:: Yes Advanced Practice Provider:: Radha Godoy Advanced Practice Provider documentation review:: The Mid-level provider documentation, treatment plan and medical decision making was reviewed by the physician who agrees with all treatment and medical decision making by the MLP. The physician spent face to face time with patient:: No Advanced Practice Provider documentation review:: Supervising physician onsite and consulted in the evaluation and care of this patient. The physician did not have a face to face encounter with the patient. This chart was documented by the indicated scribe, (Amanda Wong Scribe) and accurately reflects the services I performed and decisions made by me, Radha Godoy CRNP, as attested by the provider's signature.
[2019-12-28 15:48] LABS: URINE SOURCE CLEAN CATCH
[2019-12-28 15:50] LABS: BILIRUBIN URINE NEGATIVE (NEGATIVE); BLOOD URINE TRACE (NEGATIVE); COLOR YELLOW; GLUCOSE URINE NEGATIVE (NEGATIVE); KETONE URINE TRACE mg/dL (NEGATIVE); LEUKOCYTES URINE LARGE (NEGATIVE); NITRITE URINE POSITIVE (NEGATIVE); PROTEIN URINE 30 mg/dL (NEGATIVE); SP GRAVITY URINE 1.022; TURBIDITY URINE HAZY (CLEAR); UROBILINOGEN URINE NORMAL (NORMAL)
[2019-12-28] MEDS ORDERED: ZOFRAN IV PRN (15:52)
[2019-12-28] MEDS ORDERED: TYLENOL PO PRN (15:52)
[2019-12-28] MEDS ORDERED: M.V.I.-12 10 ML, FOLIC ACID 1 MG, MAGNESIUM SULFATE 1 GM, THIAMINE 100 MG in NS 1,000 ML IV ONE (15:55)
[2019-12-28] MEDS ORDERED: LEVAQUIN 500 MG/D5W 500 MG/100 ML IVPB IV SCH (16:00)
[2019-12-28 16:10] LABS: UR AMPHETAMINES QUAL NONE DETECTED (NONE DETECT); UR BARBITUATES QUAL NONE DETECTED (NONE DETECT); UR BENZODIAZEPIN QUAL NONE DETECTED (NONE DETECT); UR CANNABINOIDS QUAL NONE DETECTED (NONE DETECT); UR COCAINE QUAL NONE DETECTED (NONE DETECT); UR METHADONE QUAL NONE DETECTED (NONE DETECT); UR METHAMPHETAMINE QUAL NONE DETECTED (NONE DETECT); UR OPIATES QUAL PRESUMPTIVE POSITIVE (NONE DETECT); UR OXYCODONE QUAL NONE DETECTED (NONE DETECT); UR PCP QUAL NONE DETECTED (NONE DETECT); UR PROPOXYPHENE QUAL NONE DETECTED (NONE DETECT); UR TCA QUAL PRESUMPTIVE POSITIVE (NONE DETECT)
[2019-12-28] MEDS ORDERED: ATIVAN IV PRN (16:11)
[2019-12-28 16:27] LABS: URINE CASTS NONE SEEN; URINE CRYSTALS NONE SEEN; URINE SMALL ROUND CELLS NONE SEEN; URINE YEAST NONE SEEN
[2019-12-28 16:28] LABS: UR EPITHELIAL CELLS <10 /HPF (<10); URINE BACTERIA 4+ /HPF; URINE RBC <10 /HPF (<10); URINE WBC TNTC /HPF (<10)
[2019-12-28] MEDS: NS 1,000 ML IV SCH (17:27)
--- NOTE | 2019-12-28 19:06 | HISTORY AND PHYSICAL ---
PRIMARY CARE PHYSICIAN: Dr. Giovani Tolbert. CHIEF COMPLAINT: Fell out of wheelchair backwards hitting her head on concrete. HISTORY OF PRESENTING ILLNESS: This is a 54-year-old female who presents to [facility] ER after she attempted to go up her ramp at her home in her wheelchair unassisted and got to the first edge of the ramp and fell backward, hitting her head on the concrete. She did not lose consciousness, but when she arrived, she had a blood pressure of 87/49 and was saturating 89% on room air. Currently saturating 94% on room air. Her serum alcohol level was 170, and the states she drinks about a pint of vodka daily. CT of the head showed no hemorrhage, no injury. Cervical spine CT showed no acute fracture. Maxillofacial CT shows no acute bony injury. She uses her wheelchair because she had a CVA and has right-sided weakness along with slurred speech as a residual effect. So, she will be admitted for further evaluation and treatment. PAST MEDICAL HISTORY: Atrial fibrillation, hyperlipidemia, hypertension, CVA. PAST SURGICAL HISTORY: Bilateral tubal ligation and a left knee repair. FAMILY HISTORY: Reviewed and noncontributory. SOCIAL HISTORY: She currently lives with family. She is a pack a day smoker. Drinks a pint of vodka daily and denies any illicit drug use. ALLERGIES: She has no known drug allergies. HOME MEDICATIONS: We will hold her atenolol 50 mg p.o. b.i.d. Doxepin 50 mg p.o. daily, hydrocodone 7.5 p.o. b.i.d. p.r.n., quetiapine 50 mg p.o. at bedtime. We will continue her citalopram 20 mg p.o. daily, omeprazole 40 mg p.o. b.i.d., and pregabalin 100 mg p.o. b.i.d. LABORATORY DATA: Showed a white blood cell count of 3.96, hemoglobin 11.8, hematocrit 35, platelets 178, PT/INR of 13.4 and 0.94. ABG with a pH of 7.34, pCO2 of 42, pO2 of 61, bicarb of 22.3. This was on room air. Sodium 146, potassium 3.9, chloride 104, CO2 of 20, BUN 10, creatinine 0.6, glucose 103, magnesium 1.7. AST of 149, ALT of 69. Cardiac enzymes were negative. Plasma lactate was 4.1. Urinalysis and urine drug screen are both pending. Serum alcohol level showed 170. Chest x-ray showed a negative exam. Head and cervical spine CT showed no hemorrhage, no injury and no acute fracture. Maxillofacial CT showed no acute bony injury. REVIEW OF SYSTEMS: She denied any fever, chills, blurred vision, dizziness, chest pain, coughing, or shortness of breath. She denied any abdominal pain, constipation, diarrhea, burning or hurting with urination. PHYSICAL EXAMINATION: VITAL SIGNS: On arrival she had a temperature of 98.1, pulse 93, respirations 16, blood pressure 87/49. She was saturating 89% on room air. Was given a 2-liter bolus of normal saline. Blood pressure systolically went up to 137. HEENT: Normocephalic, atraumatic. Normal ENT inspection. GENERAL: She is noted to have slurred speech as a residual from the CVA, but answers questions appropriately. EYES: Pupils are equal, round, and reactive to light and accommodation. Extraocular movements are intact. NECK: Normal inspection, normal range of motion. LUNGS: With crackles bilaterally but equal lung expansion and chest wall movement noted. O2 via nasal cannula currently in use. HEART: Regular rate and rhythm. No murmurs, rubs, or gallops. ABDOMEN: Soft, nontender, nondistended. Bowel sounds are present x4 quadrants. MUSCULOSKELETAL: Patient is noted to have right-sided hemiplegia as a residual of her CVA. NEUROLOGICAL: Cranial nerves II-XII are at baseline for this patient with noted slurred speech and right-sided hemiplegia, status post her CVA, otherwise normal findings. ASSESSMENT: 1. Fall from wheelchair. 2. Alcohol use and abuse. 3. Elevated liver function tests secondary to alcohol abuse. 4. Tobacco abuse. 5. Atrial fibrillation, rate controlled. 6. Hypotension. PLAN: She will be admitted to the medical unit and placed on telemetry, O2 per protocol, and a regular diet. We are going to check a urinalysis and urine drug screen and place on Levaquin 500 mg IV every 24 hours, Solu-Medrol 40 mg IV every 8 hours, normal saline at 125 mL/hr, and give a banana bag of fluids now over 1 hour. We will give her some Ativan 1 mg IV every 4 hours p.r.n. for alcohol withdrawal, and we will recheck a CBC, CMP, magnesium, serial lactates. Further orders after seen by attending. Dictated by JEFFREY Dyer for Giovani Tolbert MD cc: JEFFREY Dyer MD
[2019-12-28] MEDS: DUONEB (A & A) INH SCH ×2 (20:56→22:49)
[2019-12-28 21:03] LABS: INR 0.97; PROTIME 13.4 Seconds (11.0-16.0)
[2019-12-28 21:04] LABS: PTT 28.5 Seconds (22.3-41.8)
--- NOTE | 2019-12-28 21:14 | EKG Report ---
Test Performed on : 12/28/2019 8:49:34 PM Test Reason : sepsis w/u Blood Pressure : / mmHG Vent. Rate : 076 BPM Atrial Rate : 076 BPM P-R Int : 160 ms QRS Dur : 086 ms QT Int : 462 ms P-R-T Axes : 041 100 097 degrees QTc Int : 519 ms Normal sinus rhythm. Rightward axis ST & T wave abnormality, consider anterolateral ischemia Prolonged QT Abnormal ECG When compared with ECG of 08-FEB-2019 20:19, T wave inversion now evident in Lateral leads Confirmed by Josh Silva MD ([id number]) on 01/01/2020 5:47:29 AM
[2019-12-28] MEDS: LYRICA PO SCH (22:14)
[2019-12-28] MEDS: PRILOSEC PO SCH (22:14)
--- NOTE | 2019-12-29 00:05 | HISTORY AND PHYSICAL ---
ADDENDUM: The patient presented to the hospital after having fallen out of her wheelchair at home. She fell and apparently hit the back of her head. Thankfully, CT is negative. She currently is inebriated. Her blood pressures initially were low at 87/49. After a fluid bolus, they are improving. O2 saturation also was 89% on room air. After nebulized treatment it is also improving. We are going to admit her to the hospital, treat her for COPD exacerbation, follow her blood pressures. Further orders as needed. cc: Giovani Tolbert MD
[2019-12-29] MEDS: SOLU-MEDROL IV SCH ×2 (00:37→07:56)
[2019-12-29] MEDS: NS 1,000 ML IV SCH (00:51)
[2019-12-29] MEDS: NICODERM PATCH TD SCH ×2 (03:29→08:00)
[2019-12-29 05:55] LABS: HEMATOCRIT 34.9 % (37.0-47.0); HEMOGLOBIN 11.3 g/dL (12.0-16.0); MCH 41.4 PG (27-31); MCHC 32.4 g/dL (33-37); MCV 127.8 FL (81-99); MPV 9.7 FL (7.4-10.4); RBC 2.73 XMIL (4.2-5.4); RDW 12.2 % (11.5-14.5); WBC 5.22 X1000 (4.8-10.8)
[2019-12-29] MEDS: PRILOSEC PO SCH (06:19)
[2019-12-29 06:20] LABS: AGAP 17; ALBUMIN 3.4 g/dL (3.5-5.0); ALKALINE PHOSPHATASE 107 U/L (32-104); BUN 14 mg/dL (8-22); CALCIUM 8.4 mg/dL (8.8-10.2); CHLORIDE 107 mmol/L (98-107); COSMO 290; CREATININE 0.7 mg/dL (0.5-0.9); ESTIMATED GFR > 60; GLUCOSE 241 mg/dL (70-104); GOT 166 U/L (10-30); GPT 74 U/L (10-36); MAGNESIUM 1.7 mg/dL (1.5-2.7); POTASSIUM 4.2 mmol/L (3.5-5.1); SODIUM 141 mmol/L (136-145); TCO2 17 mmol/L (25-35); TOTAL PROTEIN 5.9 g/dL (6.3-8.3)
[2019-12-29] MEDS: DUONEB (A & A) INH SCH (07:32)
[2019-12-29] MEDS: LYRICA PO SCH (08:00)
[2019-12-29 08:40] VITALS: BP 127/104
[2019-12-29] MEDS ORDERED: CELEXA PO SCH (09:00)
--- NOTE | 2019-12-29 13:19 | DISCHARGE SUMMARY ---
ADMISSION DATE: 12/28/2019 DISCHARGE DATE: 12/29/2019 PRIMARY CARE PHYSICIAN: Giovani Tolbert MD. ADMISSION DIAGNOSES: 1. Fall from wheelchair. 2. Alcohol use and abuse. 3. Elevated liver enzymes secondary to alcohol abuse. 4. Tobacco abuse. 5. Hypotension. 6. Atrial fibrillation, rate control. DISCHARGE DIAGNOSES: 1. Fall from wheelchair. 2. Alcohol use and abuse. 3. Elevated LFTs secondary to alcohol use. 4. Hypotension resolved. 5. Tobacco abuse. 6. Atrial fibrillation, rate controlled. 7. Urinary tract infection. SUMMARY OF FINDINGS: This is a 54-year-old female who presented to the ER after she had attempted to go up her ramp by herself unassisted, got to the first edge of the ramp and then fell backwards hitting her head on the concrete. Did not lose consciousness. When she arrived, her blood pressure was 87/49 and was saturating 89% on room air. She drinks a pint of vodka a day, and her alcohol level was [address] of the head showed no hemorrhage, no injury. Cervical spine CT showed no acute fracture. Maxillofacial CT showed no acute bony injury. She does have a history of a CVA with right-sided hemiplegia and slurred speech. She was admitted. Her urinalysis did show positive nitrites, large leukocytes, 4+ bacteria. She was placed on IV hydration, given Zosyn in the ER and then Levaquin 500 mg IV every 24. She had low-dose Solu- Medrol at 40 mg IV every 8 hours. Her blood pressures have normalized and this morning is 127/104, so it is now felt that she can safely be discharged home. DISCHARGE MEDICATIONS: Will include Citalopram 20 mg p.o. daily, omeprazole 40 mg p.o. b.i.d., Pregabalin 100 mg p.o. b.i.d., atenolol 50 mg p.o. b.i.d., doxepin 50 mg p.o. daily, Levaquin 500 mg p.o. daily #5 with no refills, and a Medrol Dosepak. FOLLOWUP: She will need to follow up with her primary care physician in the next 1 to 2 weeks, call his office for an appointment. All discharge instructions have been reviewed and she verbalized understanding. 35-minute discharge. Dictated by JEFFREY Dyer for Giovani Tolbert MD cc: JEFFREY Dyer MD
--- NOTE | 2019-12-30 05:08 | DISCHARGE SUMMARY ---
ADMISSION DATE: 12/28/2019 DISCHARGE DATE: 12/29/2019 ADDENDUM: On discharge, patient is awake, alert. She is in no distress. Still has visible tremors, but this is chronic. The patient seen and examined by myself. Full note dictated and discussed with nurse practitioner. Patient admitted to the hospital after falling out of a wheelchair hitting the back of her head. She was admitted for observation. Thankfully, she had no further complications. Overall, she is back awake, alert. She is in no distress. She is feeling better and therefore we will discharge her home. Please see full note. cc: Giovani Tolbert MD
== END 2019-12-29 10:45 | disposition home or self-care (01) | DRG 191 ==
LOC: P.ED 12:48 → P.MEDSURG 18:12
PROVIDERS: ATTEND Family Medicine